=== PATIENT | male | born 1945 | race Caucasian/White ===

== ENCOUNTER 2017-09-12 17:31 | Emergency (ER) | payer MEDICARE, BC ==
[2017-09-12 17:35] VITALS: BP 152/77; PULSE 70; RESP 18; TEMP 98.2
[2017-09-12] MEDS ORDERED: cefTRIAXone 1,000 MG VIAL (IM USE) IM STA (17:58)
--- NOTE | 2017-09-12 17:59 | ED ---
Skin/Abscess/FB HPI - General Chief complaint: Skin/Abscess/Foreign Body Stated complaint: Infection on Leg Time Seen by Provider: 09/12/17 17:38 Source: patient, RN notes reviewed Mode of arrival: ambulatory Limitations: no limitations - History of Present Illness Initial comments: This is a 71-year-old male who presents to the emergency department with chief complaint of right leg infection. Patient states that 3 days ago he was cutting wood with a chainsaw and a log rolled and hit him in the right [place]. He states that he developed a wound that did scab over initially but is now open. He states that it is not very painful but he has noticed some surrounding redness and swelling. He states that he has been applying a drawing salve to the area. Denies any fevers or chills. Denies any other injuries or trauma. Denies chest pain or shortness of breath, abdominal pain, nausea or vomiting. - Related Data Home Medications Medication Instructions Recorded Confirmed Aspirin 81 mg PO HS 09/11/14 08/05/17 Metoprolol Tartrate [Lopressor] 50 mg PO BID 09/11/14 08/05/17 hydrALAZINE HCL [Apresoline] 50 mg PO BID 09/11/14 08/05/17 Glimepiride [Amaryl] 1 mg PO DAILY 12/05/15 08/05/17 Liraglutide [Victoza 3-Kiran] 1.8 mg SQ DAILY 12/05/15 08/05/17 Sodium Bicarbonate Tab 1,950 mg PO TID 12/05/15 08/05/17 Losartan Potassium [Cozaar] 100 mg PO DAILY 04/17/16 08/05/17 Atorvastatin Calcium [Lipitor] 20 mg PO HS 08/05/17 08/05/17 Previous Rx's Medication Instructions Recorded Ketorolac [Toradol] 10 mg PO Q6HR #20 tab 08/05/17 Orphenadrine [Norflex] 100 mg PO Q12H #7 tablet.er 08/05/17 Cephalexin [Keflex] 500 mg PO Q12HR #20 cap 09/12/17 Sulfamethox-Tmp 800-160Mg [Bactrim 1 tab PO Q12HR #20 tab 09/12/17 DS 800-160 mg] Allergies Allergy/AdvReac Type Severity Reaction Status Date / Time allopurinol Allergy Unknown Verified 09/12/17 17:36 choline fenofibrate Allergy Unknown Verified 09/12/17 17:36 [From Trilipix] febuxostat [From Uloric] Allergy Unknown Verified 09/12/17 17:36 Review of Systems ROS Statement: Those systems with pertinent positive or pertinent negative responses have been documented in the HPI. ROS Other: All systems not noted in ROS Statement are negative. Past Medical History Past Medical History: Coronary Artery Disease (CAD), Cancer, Diabetes Mellitus, Eye Disorder, Hyperlipidemia, Hypertension, Myocardial Infarction ([place]), Osteoarthritis (OA), Prostate Disorder, Renal Disease, Skin Disorder Additional Past Medical History / Comment(s): hx kidney stones(takes sodium bicarb), varicose veins bilaterally, prostate cancer, hx gout, hx skin cancer, diabetic retinopathy Last Myocardial Infarction Date:: 2007 History of Any Multi-Drug Resistant Organisms: None Reported Past Surgical History: Coronary Bypass/CABG, Heart Catheterization, Prostate Surgery Additional Past Surgical History / Comment(s): 12/14/15 Robot assisted laparoscopic prostatectomy bilateral pelvic lymhadenectomy. Other surgical hx: cystoscopy/lithotripsy, CABG 3 vessel 2007, repair of laceration on forehead, great toe-left foot surgery for gout, lisa cataracts with lens implants. Past Anesthesia/Blood Transfusion Reactions: No Reported Reaction Past Psychological History: No Psychological Hx Reported Smoking Status: Former smoker Past Alcohol Use History: None Reported Past Drug Use History: None Reported - Past Family History Sister(s) Family Medical History: Cancer Father Family Medical History: Cancer General Exam - General Exam Comments Initial Comments: General: Awake and alert, well-developed; in no apparent distress. HEENT: Head atraumatic, normocephalic. Pupils are equal, round and reactive to light. Extraocular movements intact. Oropharynx moist without erythema or exudate. Neck: Supple. Normal ROM. Cardiovascular: Regular rate and rhythm. No murmurs, rubs or gallops. Chest symmetrical. Respiratory: Lungs clear to auscultation bilaterally. No wheezes, rales or rhonchi. Normal respiratory effort with no use of accessory muscles. Musculoskeletal: Normal range of motion of the right lower extremity. Sensation is intact. Pedal pulses are 2+ equal and palpable bilaterally. Skin: [place], warm and dry. There is an approximately 1 cm in diameter superficial open wound with surrounding erythema. Erythema does spread down to the ankle, however this area is non-tender and no warmth is noted. Neurological: Alert and oriented x3. CN II-XII grossly intact. Speech is fluent and answers are appropriate. No focal neuro deficits. Psychiatric: Normal mood and affect. No overt signs of depression or anxiety noted. Limitations: no limitations Course Vital Signs 09/12/17 17:32 Temperature 98.2 F Pulse Rate 70 Respiratory 18 Rate Blood Pressure 152/77 O2 Sat by Pulse 99 Oximetry Medical Decision Making - Medical Decision Making This is a 71-year-old male who presents to the emergency department with chief complaint of right lower extremity infection. Patient was hit in the right [place] with a lot of 3 days ago. Since that time he has developed a superficial open sore with surrounding erythema and mild swelling. Patient denies any pain. Denies fevers or chills. Vital signs are stable and patient is afebrile. Given a dose of Rocephin while in the emergency department. He will be started on oral antibiotics. Return parameters were discussed including increasing spread of redness or tenderness, and development of fevers. Patient is in no acute distress and will be discharged home at this time. He is in agreement with plan and voices understanding. All questions answered. Disposition Clinical Impression: Cellulitis, Wound of right lower extremity Disposition: HOME SELF-CARE Condition: Good Instructions: Cellulitis (ED), Acute Wound Care (ED), Acute Wounds (ED) Additional Instructions: Please take medications as prescribed. Please follow up with primary care provider within 1-2 days. Please return to the emergency department if you notice any spreading of redness or tenderness, or if you develop fever or chills. Return to emergency department if symptoms should worsen or any concerns arise. Prescriptions: Cephalexin [Keflex] 500 mg PO Q12HR #20 cap Sulfamethox-Tmp 800-160Mg [Bactrim DS 800-160 mg] 1 tab PO Q12HR #20 tab Is patient prescribed a controlled substance at d/c from ED?: No Referrals: Phil Thomas MD [Primary Care Provider] - 1-2 days Time of Disposition: 18:01
== END 2017-09-12 18:54 | disposition home or self-care (01) ==
LOC: EC 17:31
DX: L03.115 Cellulitis of right lower limb (principal); I25.10 Atherosclerotic heart disease of native coronary artery without angina pectoris; E78.5 Hyperlipidemia, unspecified; I10 Essential (primary) hypertension; I25.2 Old myocardial infarction; E11.319 Type 2 diabetes mellitus with unspecified diabetic retinopathy without macular edema; Z87.891 Personal history of nicotine dependence; Z85.828 Personal history of other malignant neoplasm of skin; Z85.46 Personal history of malignant neoplasm of prostate; Z79.82 Long term (current) use of aspirin; Z79.899 Other long term (current) drug therapy; Z88.8 Allergy status to other drugs, medicaments and biological substances; Z95.818 Presence of other cardiac implants and grafts; Z95.1 Presence of aortocoronary bypass graft
CPT/HCPCS: 99282; 96372; J0696

== ENCOUNTER 2018-06-21 02:31 | Emergency (ER) | payer MEDICARE, BC ==
[2018-06-21 02:35] VITALS: RESP 16
--- NOTE | 2018-06-21 02:36 | ED ---
Male Urogenital HPI - General Source: patient, RN notes reviewed Mode of arrival: ambulatory Limitations: no limitations <Rene Almaguer P - Last Filed: 06/21/18 03:46> - General Source: patient Mode of arrival: ambulatory Limitations: no limitations <Trish Fong P - Last Filed: 06/21/18 05:07> - General Chief complaint: Urogenital Stated complaint: Hematuria - History of Present Illness Initial comments: 72-year-old male with significant past medical history including prostate cancer with prostatectomy presents to the emergency department for a chief complaint of hematuria 2 episodes. Patient states he has urinated twice in the past 2 hours and has had a significant amount of blood in the urine. He states he has seen small clots in the urine as well. He admits to mild dysuria when urinating but thinks this is due to the clots. He denies any abdominal pain. He states this has happened before when he had kidney stones. He denies any difficulty urinating.Patient has no other complaints at this time including shortness of breath, chest pain, abdominal pain, nausea or vomiting, headache, or visual changes. (Rene Almaguer) - Related Data Home Medications Medication Instructions Recorded Confirmed Aspirin 81 mg PO HS 09/11/14 08/05/17 Metoprolol Tartrate [Lopressor] 50 mg PO BID 09/11/14 08/05/17 hydrALAZINE HCL [Apresoline] 50 mg PO BID 09/11/14 08/05/17 Glimepiride [Amaryl] 1 mg PO DAILY 12/05/15 08/05/17 Liraglutide [Victoza 3-Kiran] 1.8 mg SQ DAILY 12/05/15 08/05/17 Sodium Bicarbonate Tab 1,950 mg PO TID 12/05/15 08/05/17 Losartan Potassium [Cozaar] 100 mg PO DAILY 04/17/16 08/05/17 Atorvastatin Calcium [Lipitor] 20 mg PO HS 08/05/17 08/05/17 Previous Rx's Medication Instructions Recorded Ketorolac [Toradol] 10 mg PO Q6HR #20 tab 08/05/17 Orphenadrine [Norflex] 100 mg PO Q12H #7 tablet.er 08/05/17 Cephalexin [Keflex] 500 mg PO Q12HR #20 cap 09/12/17 Sulfamethox-Tmp 800-160Mg [Bactrim 1 tab PO Q12HR #20 tab 09/12/17 DS 800-160 mg] Cephalexin [Keflex] 500 mg PO Q6HR 7 Days cap 06/21/18 Allergies Allergy/AdvReac Type Severity Reaction Status Date / Time allopurinol Allergy Unknown Verified 06/21/18 02:34 choline fenofibrate Allergy Unknown Verified 06/21/18 02:34 [From Trilipix] febuxostat [From Uloric] Allergy Unknown Verified 06/21/18 02:34 Review of Systems ROS Other: All systems not noted in ROS Statement are negative. <Rene Almaguer P - Last Filed: 06/21/18 03:46> ROS Other: All systems not noted in ROS Statement are negative. <Trish Fong P - Last Filed: 06/21/18 05:07> ROS Statement: Those systems with pertinent positive or pertinent negative responses have been documented in the HPI. Past Medical History Past Medical History: Coronary Artery Disease (CAD), Cancer, Diabetes Mellitus, Eye Disorder, Hyperlipidemia, Hypertension, Myocardial Infarction ([place]), Osteoarthritis (OA), Prostate Disorder, Renal Disease, Skin Disorder Additional Past Medical History / Comment(s): hx kidney stones(takes sodium bicarb), varicose veins bilaterally, prostate cancer, hx gout, hx skin cancer, diabetic retinopathy Last Myocardial Infarction Date:: 2007 History of Any Multi-Drug Resistant Organisms: None Reported Past Surgical History: Coronary Bypass/CABG, Heart Catheterization, Prostate Surgery Additional Past Surgical History / Comment(s): 12/14/15 Robot assisted laparoscopic prostatectomy bilateral pelvic lymhadenectomy. Other surgical hx: cystoscopy/lithotripsy, CABG 3 vessel 2007, repair of laceration on forehead, great toe-left foot surgery for gout, lisa cataracts with lens implants. Past Anesthesia/Blood Transfusion Reactions: No Reported Reaction Past Psychological History: No Psychological Hx Reported Smoking Status: Former smoker Past Alcohol Use History: None Reported Past Drug Use History: None Reported - Past Family History Sister(s) Family Medical History: Cancer Father Family Medical History: Cancer <Trish Fong P - Last Filed: 06/21/18 05:07> General Exam General appearance: alert, in no apparent distress Head exam: Present: atraumatic, normocephalic, normal inspection Eye exam: Present: normal appearance, PERRL, EOMI. Absent: scleral icterus, conjunctival injection, periorbital swelling ENT exam: Present: normal exam, mucous membranes moist Neck exam: Present: normal inspection, full ROM. Absent: tenderness, meningismus, lymphadenopathy Respiratory exam: Present: normal lung sounds bilaterally. Absent: respiratory distress, wheezes, rales, rhonchi, stridor Cardiovascular Exam: Present: regular rate, normal rhythm, normal heart sounds. Absent: systolic murmur, diastolic murmur, rubs, gallop, clicks GI/Abdominal exam: Present: soft, normal bowel sounds. Absent: distended, tenderness (No abdominal tenderness noted whatsoever), guarding, rebound, rigid Neurological exam: Present: alert, oriented X3, CN II-XII intact Psychiatric exam: Present: normal affect, normal mood <Rene Almaguer P - Last Filed: 06/21/18 03:46> Limitations: no limitations <Trish Fong P - Last Filed: 06/21/18 05:07> Vital Signs 06/21/18 06/21/18 06/21/18 02:32 03:45 04:39 Temperature 98.3 F 98.0 F Pulse Rate 62 67 Respiratory 16 16 Rate Blood Pressure 194/92 180/90 O2 Sat by Pulse 99 96 Oximetry Medical Decision Making - Lab Data Result diagrams: 06/21/18 03:21 06/21/18 03:21 <Rene Almaguer P - Last Filed: 06/21/18 03:46> - Lab Data Result diagrams: 06/21/18 03:21 06/21/18 03:21 <Trish Fong P - Last Filed: 06/21/18 05:07> - Medical Decision Making 72-year-old male presents to the emergency department for a chief complaint of hematuria. Patient does have a history of prostate cancer as well as kidney stones. He had 2 episodes hematuria in the past 2 hours. Denies any difficulty urinating. Does admit to mild dysuria. On exam no abdominal tenderness. This is generally unremarkable. Urinalysis does show greater than 182 red blood cells along with greater than 182 white blood cells with white blood cell clumps. CT abdomen and pelvis is negative. Chest x-ray negative. Patient will be treated with a gram of Rocephin here in the emergency department and of liter of fluids as creatinine is mildly elevated at 1.3. Patient be treated with Keflex outpatient. He will return if he has any worsening symptoms. He will follow up with primary care in 1-2 days. (Rene Almaguer) I was available for consultation in the emergency department. The history and physical exam were done by the midlevel provider. I was consulted for this patient's care. I reviewed the case with the midlevel provider and based on their presentation of the patient, I agree with the assessment, medical decision making and plan of care as documented. (Trish Fong) - Lab Data Lab Results 06/21/18 06/21/18 06/21/18 Range/Units 03:21 03:21 03:21 WBC 5.6 (3.8-10.6) k/uL RBC 4.94 (4.30-5.90) m/uL Hgb 14.7 (13.0-17.5) gm/dL Hct 44.6 (39.0-53.0) % MCV 90.3 (80.0-100.0) fL MCH 29.7 (25.0-35.0) pg MCHC 32.9 (31.0-37.0) g/dL RDW 13.4 (11.5-15.5) % Plt Count 147 L (150-450) k/uL Neutrophils % 69 % Lymphocytes % 19 % Monocytes % 7 % Eosinophils % 4 % Basophils % 0 % Neutrophils # 3.9 (1.3-7.7) k/uL Lymphocytes # 1.1 (1.0-4.8) k/uL Monocytes # 0.4 (0-1.0) k/uL Eosinophils # 0.2 (0-0.7) k/uL Basophils # 0.0 (0-0.2) k/uL Sodium 136 L (137-145) mmol/L Potassium 4.5 (3.5-5.1) mmol/L Chloride 101 (98-107) mmol/L Carbon Dioxide 28 (22-30) mmol/L Anion Gap 7 mmol/L BUN 18 (9-20) mg/dL Creatinine 1.31 H (0.66-1.25) mg/dL Est GFR (CKD-EPI)AfAm 63 (>60 ml/min/1.73 sqM) Est GFR (CKD-EPI)NonAf 54 (>60 ml/min/1.73 sqM) Glucose 177 H (74-99) mg/dL Calcium 8.8 (8.4-10.2) mg/dL Total Bilirubin 1.2 (0.2-1.3) mg/dL AST 20 (17-59) U/L ALT 30 (21-72) U/L Alkaline Phosphatase 101 (38-126) U/L Total Protein 6.0 L (6.3-8.2) g/dL Albumin 3.5 (3.5-5.0) g/dL Urine Color Red Urine Appearance Turbid (Clear) Urine pH 6.0 (5.0-8.0) Ur Specific [place] 1.014 (1.001-1.035) Urine Protein 2+ H (Negative) Urine Glucose (UA) Negative (Negative) Urine Ketones Negative (Negative) Urine Blood Large H (Negative) Urine Nitrite Positive (Negative) Urine Bilirubin Negative (Negative) Urine Urobilinogen <2.0 (<2.0) mg/dL Ur Leukocyte Esterase Large H (Negative) Urine RBC >182 H (0-5) /hpf Urine WBC >182 H (0-5) /hpf Urine WBC Clumps Many H (None) /hpf Urine Bacteria Many H (None) /hpf Hyaline Casts 27 H (0-2) /lpf Urine Mucus Rare H (None) /hpf Disposition Is patient prescribed a controlled substance at d/c from ED?: No Time of Disposition: 03:37 <Rene Almaguer P - Last Filed: 06/21/18 03:46> <Trish Fong P - Last Filed: 06/21/18 05:07> Clinical Impression: Hematuria, Urinary tract infection Disposition: HOME SELF-CARE Condition: Good Instructions (If sedation given, give patient instructions): Urinary Tract Infection in Men (ED), Hematuria (ED) Additional Instructions: Please follow up with primary care in 1-2 days for blood in urine. Please return if you have any worsening symptoms. Prescriptions: Cephalexin [Keflex] 500 mg PO Q6HR 7 Days cap Referrals: Phil Thomas MD [Primary Care Provider] - 1-2 days
--- NOTE | 2018-06-21 03:16 | XR ---
EXAM: XR Chest, 2 Views CLINICAL HISTORY: ITS.REASON XR Reason: Pain TECHNIQUE: Frontal and lateral views of the chest. COMPARISON: 04/17/16 chest x-ray IMPRESSION: Normal heart size. No consolidation or pleural effusion. Median sternotomy wires are intact.
--- NOTE | 2018-06-21 03:24 | CT ---
EXAM: CT Abdomen and Pelvis Without Intravenous Contrast, Renal Stone Protocol CLINICAL HISTORY: ITS.REASON CT Reason: Pain TECHNIQUE: Axial computed tomography images of the abdomen and pelvis without intravenous contrast using renal stone protocol. CTDI is 12 mGy and DLP is 727 mGy-cm. This CT exam was performed using one or more of the following dose reduction techniques: automated exposure control, adjustment of the mA and/or kV according to patient size, and/or use of iterative reconstruction technique. COMPARISON: [facility] 06/09/14 CT abdomen FINDINGS: Lower thorax: Unremarkable. ABDOMEN: Liver: Multiple calcifications likely represent old granulomatous disease. Gallbladder and bile ducts: No calcified stones. No ductal dilation. Pancreas: Unremarkable. No ductal dilation. Spleen: No splenomegaly. Calcified granulomas Adrenals: Unremarkable. No mass. Right kidney and ureter: No obstructing stones. No hydronephrosis. Left kidney and ureter: No obstructing stones. No hydronephrosis. Stomach and bowel: No obstruction. No mucosal thickening. PELVIS: Appendix: No findings to suggest acute appendicitis. Bladder: No stones. Reproductive: Enlarged. ABDOMEN and PELVIS: Intraperitoneal space: No free air. No significant fluid collection. Bones/joints: No acute fracture. No dislocation. Degenerative changes. Evidence of DISH. Soft tissues: Unremarkable. Vasculature: No abdominal aortic aneurysm. Lymph nodes: No enlarged lymph nodes. IMPRESSION: No acute findings. No hydronephrosis or nephrolithiasis.
[2018-06-21 03:33] LABS: Basophils % (A) 0 %; Eosinophils # (A) 0.2 k/uL (0-0.7); Eosinophils % (A) 4 %; HCT 44.6 % (39.0-53.0); HGB 14.7 gm/dL (13.0-17.5); Lymphocytes # (A) 1.1 k/uL (1.0-4.8); Lymphocytes % (A) 19 %; MCH 29.7 pg (25.0-35.0); MCHC 32.9 g/dL (31.0-37.0); MCV 90.3 fL (80.0-100.0); Mean Platelet Volume 7.2; Monocytes # (A) 0.4 k/uL (0-1.0); Monocytes % (A) 7 %; Neutrophils # (A) 3.9 k/uL (1.3-7.7); Neutrophils % (A) 69 %; Platelet Count 147 k/uL (150-450); RBC 4.94 m/uL (4.30-5.90); RDW 13.4 % (11.5-15.5); WBC 5.6 k/uL (3.8-10.6)
[2018-06-21 03:39] LABS: Appearance,Urine Turbid (Clear); Bacteria,Urine Many /hpf; Bilirubin,Urine Negative (Negative); Blood,Urine Large (Negative); Color,Urine Red; Glucose,Urine (UA) Negative (Negative); Hyaline Casts,Urine 27 /lpf (0-2); Ketones,Urine Negative (Negative); Leukocyte Esterase,Urine Large (Negative); Mucus,Urine Rare /hpf; Nitrite,Urine Positive (Negative); Protein,Urine 2+ (Negative); RBC,Urine >182 /hpf (0-5); Specific Gravity,Urine 1.014 (1.001-1.035); Urobilinogen,Urine <2.0 mg/dL (<2.0)
[2018-06-21 03:42] LABS: Albumin 3.5 g/dL (3.5-5.0); Calcium 8.8 mg/dL (8.4-10.2); Potassium 4.5 mmol/L (3.5-5.1); Total Bilirubin 1.2 mg/dL (0.2-1.3)
[2018-06-21] MEDS ORDERED: cefTRIAXone IN SWFI 1,000 MG/10 ML SYRINGE IVP STA (03:46)
[2018-06-21] MEDS ORDERED: SODIUM CHLORIDE 0.9% 1,000 ML IV STA (03:46)
[2018-06-21 03:59] VITALS: BP 180/90; PULSE 67
[2018-06-21 04:46] VITALS: TEMP 98
== END 2018-06-21 04:39 | disposition home or self-care (01) ==
LOC: EC 02:31
DX: N39.0 Urinary tract infection, site not specified (principal); R79.89 Other specified abnormal findings of blood chemistry; I25.10 Atherosclerotic heart disease of native coronary artery without angina pectoris; E11.9 Type 2 diabetes mellitus without complications; E78.5 Hyperlipidemia, unspecified; I10 Essential (primary) hypertension; I25.2 Old myocardial infarction; Z85.46 Personal history of malignant neoplasm of prostate; Z90.79 Acquired absence of other genital organ(s); Z87.442 Personal history of urinary calculi; Z85.828 Personal history of other malignant neoplasm of skin; Z87.891 Personal history of nicotine dependence; Z95.1 Presence of aortocoronary bypass graft; Z95.818 Presence of other cardiac implants and grafts; Z79.82 Long term (current) use of aspirin; Z79.84 Long term (current) use of oral hypoglycemic drugs; Z79.899 Other long term (current) drug therapy; Z88.8 Allergy status to other drugs, medicaments and biological substances
CPT/HCPCS: 99284; 96374; 96361; 36415; 80053; 85025; 81001; 87086; 87077; 87186; 71046; 74150; J0696

== ENCOUNTER 2018-07-22 14:09 | Observation (INO) | payer MEDICARE, BC ==
[2018-07-22] MEDS ORDERED: SODIUM CHLORIDE 0.9% 500 ML 500 ML IV ONE (14:40)
[2018-07-22] MEDS ORDERED: ASPIRIN 325 MG TAB PO STA (14:40)
--- NOTE | 2018-07-22 14:52 | ED ---
General Adult HPI - General Chief complaint: Chest Pain Stated complaint: chest discomfort Time Seen by Provider: 07/22/18 14:22 Source: patient, RN notes reviewed, old records reviewed Mode of arrival: wheelchair Limitations: no limitations - History of Present Illness Initial comments: 72-year-old male presents for evaluation of chest pain. Patient states that for the past 3 days he's had intermittent left-sided chest pain. He has had a mild cough. No fever or chills. He has history of CAD status post open heart surgery in 2009. This denies associated diaphoresis or nausea vomiting. Patient's states he was quite pale just prior to arrival. He did feel lightheaded and reported some blurry vision. He states he's had vertigo in the past although this was dissimilar sensation, felt that he might pass out. No focal numbness or weakness. - Related Data Home Medications Medication Instructions Recorded Confirmed Aspirin 81 mg PO HS 09/11/14 07/22/18 Metoprolol Tartrate [Lopressor] 50 mg PO BID 09/11/14 07/22/18 hydrALAZINE HCL [Apresoline] 50 mg PO BID 09/11/14 07/22/18 Glimepiride [Amaryl] 1 mg PO AC-BID 12/05/15 07/22/18 Liraglutide [Victoza 3-Kiran] 1.8 mg SQ DAILY 12/05/15 07/22/18 Sodium Bicarbonate Tab 1,950 mg PO TID 12/05/15 07/22/18 Losartan Potassium [Cozaar] 100 mg PO DAILY 04/17/16 07/22/18 Atorvastatin Calcium [Lipitor] 10 mg PO HS 08/05/17 07/22/18 Allergies Allergy/AdvReac Type Severity Reaction Status Date / Time allopurinol Allergy Unknown Verified 07/22/18 14:51 choline fenofibrate Allergy Unknown Verified 07/22/18 14:51 [From Trilipix] febuxostat [From Uloric] Allergy Unknown Verified 07/22/18 14:51 Review of Systems ROS Statement: Those systems with pertinent positive or pertinent negative responses have been documented in the HPI. ROS Other: All systems not noted in ROS Statement are negative. Past Medical History Past Medical History: Coronary Artery Disease (CAD), Cancer, Diabetes Mellitus, Eye Disorder, Hyperlipidemia, Hypertension, Myocardial Infarction ([place]), Osteoarthritis (OA), Prostate Disorder, Renal Disease, Skin Disorder Additional Past Medical History / Comment(s): hx kidney stones(takes sodium bicarb), varicose veins bilaterally, prostate cancer, hx gout, hx skin cancer, diabetic retinopathy Last Myocardial Infarction Date:: 2007 History of Any Multi-Drug Resistant Organisms: None Reported Past Surgical History: Coronary Bypass/CABG, Heart Catheterization, Prostate Surgery Additional Past Surgical History / Comment(s): 12/14/15 Robot assisted laparoscopic prostatectomy bilateral pelvic lymhadenectomy. Other surgical hx: cystoscopy/lithotripsy, CABG 3 vessel 2007, repair of laceration on forehead, great toe-left foot surgery for gout, lisa cataracts with lens implants. Past Anesthesia/Blood Transfusion Reactions: No Reported Reaction Past Psychological History: No Psychological Hx Reported Smoking Status: Former smoker Past Alcohol Use History: None Reported Past Drug Use History: None Reported - Past Family History Sister(s) Family Medical History: Cancer Father Family Medical History: Cancer General Exam Limitations: no limitations General appearance: alert, in no apparent distress Head exam: Present: atraumatic, normocephalic Eye exam: Present: normal appearance, PERRL, EOMI ENT exam: Present: mucous membranes dry Neck exam: Present: normal inspection. Absent: tenderness, meningismus Respiratory exam: Present: normal lung sounds bilaterally. Absent: respiratory distress, wheezes Cardiovascular Exam: Present: regular rate, normal rhythm GI/Abdominal exam: Present: soft. Absent: distended, tenderness, guarding Extremities exam: Present: normal inspection, normal capillary refill. Absent: pedal edema Neurological exam: Present: alert, oriented X3, CN II-XII intact. Absent: motor sensory deficit Psychiatric exam: Present: normal affect, normal mood Skin exam: Present: warm, dry, intact. Absent: cyanosis, diaphoretic Course Vital Signs 07/22/18 14:11 Temperature 97.7 F Pulse Rate 71 Respiratory 18 Rate Blood Pressure 138/74 O2 Sat by Pulse 98 Oximetry EKG Findings - EKG Comments: EKG Findings:: EKG: Normal sinus rhythm, left axis deviation, LVH, rate of 69, AK interval 168, QRS duration 96, QTC 424, no ST segment elevation. Similar compared to previous EKG, March 2016. Medical Decision Making - Medical Decision Making 72-year-old male presenting with chest discomfort for the past 3 days, history of CAD, and lightheadedness with near-syncope. Workup in the emergency department shows chest x-ray negative for any acute cardiopulmonary disease, there is cardiomegaly, normal CBC, creatinine 1.36 which is baseline for this patient, initial troponin is negative. Patient will be kept in observation for serial cardiac enzymes, telemetry, cardiology consultation. Echo will be obtained. - Lab Data Result diagrams: 07/22/18 14:40 07/22/18 14:40 Lab Results 07/22/18 07/22/18 07/22/18 Range/Units 14:40 14:40 14:40 WBC 6.4 (3.8-10.6) k/uL RBC 5.18 (4.30-5.90) m/uL Hgb 15.4 (13.0-17.5) gm/dL Hct 45.7 (39.0-53.0) % MCV 88.2 (80.0-100.0) fL MCH 29.7 (25.0-35.0) pg MCHC 33.7 (31.0-37.0) g/dL RDW 14.5 (11.5-15.5) % Plt Count 218 (150-450) k/uL Neutrophils % 69 % Lymphocytes % 19 % Monocytes % 7 % Eosinophils % 3 % Basophils % 0 % Neutrophils # 4.5 (1.3-7.7) k/uL Lymphocytes # 1.2 (1.0-4.8) k/uL Monocytes # 0.4 (0-1.0) k/uL Eosinophils # 0.2 (0-0.7) k/uL Basophils # 0.0 (0-0.2) k/uL PT (9.0-12.0) sec INR (<1.2) APTT (22.0-30.0) sec Sodium 136 L (137-145) mmol/L Potassium 4.5 (3.5-5.1) mmol/L Chloride 102 (98-107) mmol/L Carbon Dioxide 26 (22-30) mmol/L Anion Gap 8 mmol/L BUN 21 H (9-20) mg/dL Creatinine 1.36 H (0.66-1.25) mg/dL Est GFR (CKD-EPI)AfAm 60 (>60 ml/min/1.73 sqM) Est GFR (CKD-EPI)NonAf 52 (>60 ml/min/1.73 sqM) Glucose 243 H (74-99) mg/dL Calcium 9.6 (8.4-10.2) mg/dL Magnesium 1.7 (1.6-2.3) mg/dL Total Bilirubin 1.7 H (0.2-1.3) mg/dL AST 25 (17-59) U/L ALT 31 (21-72) U/L Alkaline Phosphatase 90 (38-126) U/L Troponin I (0.000-0.034) ng/mL NT-Pro-B Natriuret Pep 289 pg/mL Total Protein 6.8 (6.3-8.2) g/dL Albumin 3.9 (3.5-5.0) g/dL Lipase 250 (23-300) U/L 07/22/18 07/22/18 Range/Units 14:40 14:40 WBC (3.8-10.6) k/uL RBC (4.30-5.90) m/uL Hgb (13.0-17.5) gm/dL Hct (39.0-53.0) % MCV (80.0-100.0) fL MCH (25.0-35.0) pg MCHC (31.0-37.0) g/dL RDW (11.5-15.5) % Plt Count (150-450) k/uL Neutrophils % % Lymphocytes % % Monocytes % % Eosinophils % % Basophils % % Neutrophils # (1.3-7.7) k/uL Lymphocytes # (1.0-4.8) k/uL Monocytes # (0-1.0) k/uL Eosinophils # (0-0.7) k/uL Basophils # (0-0.2) k/uL PT 10.3 (9.0-12.0) sec INR 1.0 (<1.2) APTT 27.9 (22.0-30.0) sec Sodium (137-145) mmol/L Potassium (3.5-5.1) mmol/L Chloride (98-107) mmol/L Carbon Dioxide (22-30) mmol/L Anion Gap mmol/L BUN (9-20) mg/dL Creatinine (0.66-1.25) mg/dL Est GFR (CKD-EPI)AfAm (>60 ml/min/1.73 sqM) Est GFR (CKD-EPI)NonAf (>60 ml/min/1.73 sqM) Glucose (74-99) mg/dL Calcium (8.4-10.2) mg/dL Magnesium (1.6-2.3) mg/dL Total Bilirubin (0.2-1.3) mg/dL AST (17-59) U/L ALT (21-72) U/L Alkaline Phosphatase (38-126) U/L Troponin I <0.012 (0.000-0.034) ng/mL NT-Pro-B Natriuret Pep pg/mL Total Protein (6.3-8.2) g/dL Albumin (3.5-5.0) g/dL Lipase (23-300) U/L Disposition Clinical Impression: Chest pain, Near syncope Disposition: ADMITTED IP TO THIS [facility] Condition: Stable Is patient prescribed a controlled substance at d/c from ED?: No Referrals: Phil Thomas MD [Primary Care Provider] - 1-2 days Decision to Admit Reason: Admit from EC Decision Date: 07/22/18 Decision Time: 16:26
[2018-07-22 14:57] LABS: Basophils % (A) 0 %; Eosinophils # (A) 0.2 k/uL (0-0.7); Eosinophils % (A) 3 %; HCT 45.7 % (39.0-53.0); HGB 15.4 gm/dL (13.0-17.5); Lymphocytes # (A) 1.2 k/uL (1.0-4.8); Lymphocytes % (A) 19 %; MCH 29.7 pg (25.0-35.0); MCHC 33.7 g/dL (31.0-37.0); MCV 88.2 fL (80.0-100.0); Mean Platelet Volume 8.2; Monocytes # (A) 0.4 k/uL (0-1.0); Monocytes % (A) 7 %; Neutrophils # (A) 4.5 k/uL (1.3-7.7); Neutrophils % (A) 69 %; Platelet Count 218 k/uL (150-450); RBC 5.18 m/uL (4.30-5.90); RDW 14.5 % (11.5-15.5); WBC 6.4 k/uL (3.8-10.6)
--- NOTE | 2018-07-22 15:03 | XR ---
EXAMINATION TYPE: XR chest 2V DATE OF EXAM: 07/22/2018 COMPARISON: Chest x-ray one month ago. HISTORY: Chest pressure and pain for 3 days. TECHNIQUE: Frontal and lateral views of the chest are obtained. FINDINGS: Overlying EKG leads are seen. There is elevated left hemidiaphragm noted. Overlying sternal wires and mediastinal clips are redemonstrated. There is no focal air space opacity, pleural effusi on, or pneumothorax seen. The cardiac silhouette size is within mildly enlarged . Multilevel spurrin g in the thoracic spine is redemonstrated. IMPRESSION: Mild cardiomegaly without acute pulmonary process.
[2018-07-22 15:06] LABS: Partial Thromboplastin Time 27.9 sec (22.0-30.0); Prothrombin Time 10.3 sec (9.0-12.0)
[2018-07-22 15:11] LABS: Albumin 3.9 g/dL (3.5-5.0); Calcium 9.6 mg/dL (8.4-10.2); Magnesium 1.7 mg/dL (1.6-2.3); Potassium 4.5 mmol/L (3.5-5.1); Total Bilirubin 1.7 mg/dL (0.2-1.3); Total Protein 6.8 g/dL (6.3-8.2)
[2018-07-22] MEDS ORDERED: MORPHINE SULFATE 4 MG/ML SYRINGE IV PRN (16:21)
[2018-07-22] MEDS ORDERED: ONDANSETRON 4 MG/2 ML VIAL IVP PRN (16:21)
[2018-07-22] MEDS ORDERED: MECLIZINE 25 MG TAB PO PRN (16:21)
[2018-07-22] MEDS ORDERED: ACETAMINOPHEN TAB 325 MG TAB PO PRN (16:21)
[2018-07-22] MEDS ORDERED: NALOXONE 0.4 MG/ML 1 ML VIAL IV PRN (16:21)
[2018-07-22] MEDS ORDERED: NITROGLYCERIN SL TABS 0.4 MG TAB SUBLINGUAL PRN (16:23)
[2018-07-22] MEDS: SODIUM CHLORIDE 0.9% 1,000 ML IV SCH (17:14)
[2018-07-22] MEDS ORDERED: GLIMEPIRIDE 1 MG TAB PO SCH (17:30)
[2018-07-22 20:10] VITALS: RESP 18
[2018-07-22] MEDS: METOPROLOL TARTRATE 50 MG TAB PO SCH (20:22)
[2018-07-22] MEDS: hydrALAZINE HCL 50 MG TAB PO SCH (20:22)
[2018-07-22 20:27] LABS: Glucose,Whole Blood 118 mg/dL (75-99)
[2018-07-22] MEDS: INSULIN ASPART (NovoLOG) 100 UNIT/ML VIAL SQ SCH (20:30)
[2018-07-22] MEDS: SODIUM BICARBONATE TAB 650 MG TAB PO SCH (20:30)
[2018-07-22] MEDS ORDERED: ATORVASTATIN 10 MG TAB PO SCH (21:00)
[2018-07-22] MEDS ORDERED: ASPIRIN 81 MG PO SCH (21:00)
[2018-07-23] MEDS: SODIUM CHLORIDE 0.9% 1,000 ML IV SCH (06:26)
[2018-07-23 06:44] LABS: Glucose,Whole Blood 138 mg/dL (75-99)
[2018-07-23] MEDS: Liraglutide [Victoza 3-Pak] 1.8 MG SQ SCH ×2 (08:47→10:48)
[2018-07-23] MEDS ORDERED: LOSARTAN 50 MG TAB PO SCH (09:00)
--- NOTE | 2018-07-23 09:15 | P.CRDCN ---
History of Present Illness Consult date: 07/23/18 History of present illness: This is a 72-year-old gentleman with history of coronary artery disease with previous bypass surgery in 2009. Patient has been followed by Dr. Dunn regularly. He also has hypertension and diabetes and hypercholesterolemia. Apparently for the last week has been is sneezing. He had a previous injury with whiplash and his lack. Whenever he was sneezing, he was having pain in the neck that radiated to the chest. He claims that he had some discomfort yesterday in the left upper chest which was very mild. Apparently lasted about an hour or so and then subsided spontaneously. According to the emergency room. Patient also had some lightheadedness and blurry vision. He doesn't recall having any issues. Since admission patient has been stable. His EKGs did not reveal any significant changes. His cardiac enzymes are so far negative. His creatinine is 1.36 which is chronic. His proBNP is within normal limits. Patient is feeling very good and he wants to go home. He had a stress test last year which apparently was normal. Patient prefers to go home and be followed with the Dr. Dunn in one week. Review of Systems As per the chart Past Medical History Past Medical History: Coronary Artery Disease (CAD), Cancer, Diabetes Mellitus, Eye Disorder, Hyperlipidemia, Hypertension, Myocardial Infarction ([place]), Osteoarthritis (OA), Prostate Disorder, Renal Disease, Skin Disorder Additional Past Medical History / Comment(s): hx kidney stones(takes sodium bicarb), varicose veins bilaterally, prostate cancer, hx gout, hx skin cancer, diabetic retinopathy, vertigo Last Myocardial Infarction Date:: 2007 History of Any Multi-Drug Resistant Organisms: None Reported Past Surgical History: Coronary Bypass/CABG, Heart Catheterization, Prostate Surgery Additional Past Surgical History / Comment(s): 12/14/15 Robot assisted laparoscopic prostatectomy bilateral pelvic lymhadenectomy. Other surgical hx: cystoscopy/lithotripsy, CABG 3 vessel 2007, repair of laceration on forehead, great toe-left foot surgery for gout, lisa cataracts with lens implants. Past Anesthesia/Blood Transfusion Reactions: No Reported Reaction Past Psychological History: No Psychological Hx Reported Additional Psychological History / Comment(s): Pt resides with his spouse. He is independent. Smoking Status: Former smoker Past Alcohol Use History: None Reported Past Drug Use History: None Reported - Past Family History Sister(s) Family Medical History: Cancer Father Family Medical History: Cancer Medications and Allergies Home Medications Medication Instructions Recorded Confirmed Type Aspirin 81 mg PO HS 09/11/14 07/22/18 History Metoprolol Tartrate [Lopressor] 50 mg PO BID 09/11/14 07/22/18 History hydrALAZINE HCL [Apresoline] 50 mg PO BID 09/11/14 07/22/18 History Glimepiride [Amaryl] 1 mg PO AC-BID 12/05/15 07/22/18 History Liraglutide [Victoza 3-Kiran] 1.8 mg SQ DAILY 12/05/15 07/22/18 History Sodium Bicarbonate Tab 1,950 mg PO TID 12/05/15 07/22/18 History Losartan Potassium [Cozaar] 100 mg PO DAILY 04/17/16 07/22/18 History Atorvastatin Calcium [Lipitor] 10 mg PO HS 08/05/17 07/22/18 History Allergies Allergy/AdvReac Type Severity Reaction Status Date / Time allopurinol Allergy Unknown Verified 07/22/18 20:12 choline fenofibrate Allergy Unknown Verified 07/22/18 20:12 [From Trilipix] febuxostat [From Uloric] Allergy Unknown Verified 07/22/18 20:12 Physical Exam Vitals: Vital Signs Temp Pulse Pulse Resp BP BP Pulse Ox 07/23/18 07:30 97.6 F 62 18 164/80 95 07/23/18 03:19 18 07/23/18 02:56 97.7 F 66 18 134/65 98 07/22/18 23:38 98.4 F 66 18 129/61 96 07/22/18 20:00 97.7 F 61 18 169/90 96 07/22/18 19:00 66 13 166/97 97 07/22/18 18:00 66 15 178/93 96 07/22/18 16:00 61 16 165/91 97 07/22/18 14:11 97.7 F 71 18 138/74 98 Intake and Output 07/22/18 07/23/18 07/23/18 22:59 06:59 14:59 Intake Total 525 Balance 525 Intake: IV 525 Sodium Chloride 0.9% 1, 525 000 ml @ 75 mls/hr IV . [id number] [facility] Rx#:[id number] Other: Voiding Method Toilet Toilet Toilet # Voids 2 GENERAL EXAM: Patient is alert and oriented and doesn't appear to be in any acute distress HEENT: Normocephalic. Normal reaction of pupils, equal size, normal range of extraocular motion. No erythema or exudates in the throat. NECK: No masses, no nuchal rigidity. CHEST: No chest wall deformity. LUNGS: Equal air entry with no crackles or wheeze. HEART: S1 and S2 normal with no audible mumurs or gallops. Regular rhythm, femorals equal on both sides.. ABDOMEN: No hepatosplenomegaly, normal bowel sounds, no guarding or rigidity. SKIN: No rashes CENTRAL NERVOUS SYSTEM: No focal deficits. EXTREMITIES: No cyanosis, clubbing or edema. Results 07/22/18 14:40 07/22/18 14:40 Cardiac Enzymes 07/22/18 07/22/18 07/22/18 Range/Units 14:40 14:40 20:43 AST 25 (17-59) U/L Troponin I <0.012 <0.012 (0.000-0.034) ng/mL 07/23/18 Range/Units 03:21 AST (17-59) U/L Troponin I <0.012 (0.000-0.034) ng/mL Coagulation 07/22/18 Range/Units 14:40 PT 10.3 (9.0-12.0) sec APTT 27.9 (22.0-30.0) sec CBC 07/22/18 Range/Units 14:40 WBC 6.4 (3.8-10.6) k/uL RBC 5.18 (4.30-5.90) m/uL Hgb 15.4 (13.0-17.5) gm/dL Hct 45.7 (39.0-53.0) % Plt Count 218 (150-450) k/uL Comprehensive Metabolic Panel 07/22/18 Range/Units 14:40 Sodium 136 L (137-145) mmol/L Potassium 4.5 (3.5-5.1) mmol/L Chloride 102 (98-107) mmol/L Carbon Dioxide 26 (22-30) mmol/L BUN 21 H (9-20) mg/dL Creatinine 1.36 H (0.66-1.25) mg/dL Glucose 243 H (74-99) mg/dL Calcium 9.6 (8.4-10.2) mg/dL AST 25 (17-59) U/L ALT 31 (21-72) U/L Alkaline Phosphatase 90 (38-126) U/L Total Protein 6.8 (6.3-8.2) g/dL Albumin 3.9 (3.5-5.0) g/dL Current Medications Generic Name Dose Route Start Last Admin Trade Name Freq PRN Reason Stop Dose Admin Acetaminophen 650 mg 07/22/18 16:21 Tylenol Tab PO Q6HR PRN Mild Pain or Fever > 100.5 Aspirin 81 mg 07/22/18 21:00 07/22/18 20:22 Aspirin PO 81 mg HS LORI Administration Atorvastatin Calcium 10 mg 07/22/18 21:00 07/22/18 20:22 Lipitor PO 10 mg HS LORI Administration Hydralazine HCl 50 mg 07/22/18 21:00 07/22/18 20:22 Apresoline PO 50 mg BID LORI Administration Sodium Chloride 1,000 mls @ 75 mls/hr 07/22/18 16:30 07/23/18 06:26 Saline 0.9% IV Not Given .[id number] [facility] Insulin Aspart 0 unit 07/22/18 21:00 07/22/18 20:30 Novolog SQ Not Given ACHS [facility] Protocol Losartan Potassium 100 mg 07/23/18 09:00 Cozaar PO DAILY [facility] Meclizine HCl 25 mg 07/22/18 16:21 Antivert PO TID PRN Vertigo Metoprolol Tartrate 50 mg 07/22/18 21:00 07/22/18 20:22 Lopressor PO 50 mg BID LORI Administration Morphine Sulfate 4 mg 07/22/18 16:21 Morphine Sulfate (Inj) IV Q4HR PRN Severe Pain Naloxone HCl 0.2 mg 07/22/18 16:21 Narcan IV Q2M PRN Opioid Reversal Nitroglycerin 0.4 mg 07/22/18 16:23 Nitrostat SUBLINGUAL Q5M PRN Chest Pain Non-Formulary Medication 1.8 mg 07/23/18 09:00 07/23/18 08:47 Liraglutide [Victoza 3-Kiran] SQ Not Given DAILY [facility] Ondansetron HCl 4 mg 07/22/18 16:21 Zofran IVP Q8HR PRN Nausea And Vomiting Sodium Bicarbonate 1,950 mg 07/22/18 22:00 07/22/18 20:30 Sodium Bicarbonate Tab PO 1,950 mg TID LORI Administration Intake and Output 07/22/18 07/23/18 07/23/18 22:59 06:59 14:59 Intake Total 525 Balance 525 Intake: IV 525 Sodium Chloride 0.9% 1, 525 000 ml @ 75 mls/hr IV . [id number] [facility] Rx#:[id number] Other: Voiding Method Toilet Toilet Toilet # Voids 2 07/22/18 14:40 07/22/18 14:40 EKG Interpretations (text) Showed a sinus rhythm with a left axis deviation. Moderate voltage criteria for LVH. Old inferior wall MT Assessment and Plan (1) CAD (coronary artery disease) Current Visit: Yes Status: Acute Code(s): I25.10 - ATHSCL HEART DISEASE OF [place] CORONARY ARTERY W/O ANG PCTRS SNOMED Code(s): 87198157 (2) Chest pain Current Visit: Yes Status: Acute Code(s): R07.9 - CHEST PAIN, UNSPECIFIED SNOMED Code(s): 62803569 (3) Near syncope Current Visit: Yes Status: Acute Code(s): R55 - SYNCOPE AND COLLAPSE SNOMED Code(s): 808338208 Plan: Patient's cardiac enzymes are negative. EKG did not reveal any acute changes. Patient chest discomfort is resolved. Patient apparently had a stress test last year which was negative for ischemia. We'll try to get copies of them. Patient had an echo Cardec gram this morning. If the echo looks normal without any new changes, patient could be discharged home. Follow-up with the Dr. Dunn. May be considered for outpatient monitoring. If his symptoms of dizzines recur.
[2018-07-23 09:54] VITALS: BMI 30.5
[2018-07-23] MEDS: INSULIN ASPART (NovoLOG) 100 UNIT/ML VIAL SQ SCH ×2 (10:17→12:06)
[2018-07-23] MEDS: SODIUM BICARBONATE TAB 650 MG TAB PO SCH (10:34)
[2018-07-23] MEDS: METOPROLOL TARTRATE 50 MG TAB PO SCH (10:34)
[2018-07-23] MEDS: hydrALAZINE HCL 50 MG TAB PO SCH (10:35)
--- NOTE | 2018-07-23 10:36 | ECHOF ---
Referral Reason:CP MEASUREMENTS -------- HEIGHT: 152.4 cm WEIGHT: 96.6 kg BP: IVSd: 1.5 cm (0.6 - 1.1) LVIDd: 3.9 cm (3.9 - 5.3) LVPWd: 1.4 cm (0.6 - 1.1) IVSs: 1.8 cm LVIDs: 3.1 cm LVPWs: 1.4 cm LA Diam: 3.8 cm (2.7 - 3.8) LAESV Index (A-L): 25.01 ml/m Ao Diam: 3.4 cm (2.0 - 3.7) AV Cusp: 1.9 cm (1.5 - 2.6) LA Diam: 4.2 cm (2.7 - 3.8) MV EXCURSION: 23.601 mm (> 18.000) MV EF SLOPE: 111 mm/s (70 - 150) EPSS: 0.1 cm MV E Adama: 0.74 m/s MV DecT: 192 ms MV A Adama: 0.70 m/s MV E/A Ratio: 1.07 RAP: 5.00 mmHg RVSP: 24.64 mmHg FINDINGS -------- Sinus rhythm. This was a technically adequate study. The left ventricular size is normal. There is moderate concentric left ventricular hypertrophy. O verall left ventricular systolic function is low-normal with, an EF between 50 - 55 %. Basal inferi or LV wall motion is hypokinetic. The right ventricle is normal in size. The left atrial size is normal. The right atrial size is normal. There is mild aortic valve sclerosis. There is no evidence of aortic regurgitation. Mild mitral annular calcification present. Mild mitral regurgitation is present. Mild tricuspid regurgitation present. There is no evidence of pulmonary hypertension. The right v entricular systolic pressure, as measured by Doppler, is 24.64mmHg. There is no pulmonic regurgitation present. The aortic root size is normal. There is no pericardial effusion. CONCLUSIONS -------- 1. The left ventricular size is normal. 2. There is moderate concentric left ventricular hypertrophy. 3. Basal inferior LV wall motion is hypokinetic. 4. The right ventricle is normal in size. 5. The left atrial size is normal. 6. The right atrial size is normal. 7. There is mild aortic valve sclerosis. 8. Mild mitral annular calcification present. 9. Mild mitral regurgitation is present. 10. Mild tricuspid regurgitation present. 11. There is no evidence of pulmonary hypertension. 12. The right ventricular systolic pressure, as measured by Doppler, is 24.64mmHg. 13. There is no pulmonic regurgitation present. 14. The aortic root size is normal. 15. There is no pericardial effusion. 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
[2018-07-23 11:56] VITALS: BP 155/79; PULSE 64; TEMP 97.9
--- NOTE | 2018-07-23 12:05 | P.HPIM ---
History of Present Illness H&P Date: 07/22/18 Chief Complaint: Dizzy spell and chest discomfort This is a 72-year-old male one of Dr. Thomas with a previous medical history significant for hypertension and hypertensive cardio vascular disease with left ventricular hypertrophy, diabetes mellitus type 2 with diabetic polyneuropathy and diabetic retinopathy, history of prostate cancer status post robotic-assisted laparoscopic prostatectomy that was done in 2016, coronary artery disease status post coronary artery bypass graft for 3 vessels back in 2009 patient follows up with Dr. Dunn a regular basis, he was seen recently about a month ago and he was doing fine and he had a stress test according to him about a year ago that was negative for stress-induced ischemia, patient was in his usual state of health about today when he was emptying stuff from his truck and suddenly developed to have a a dizzy spell with lightheadedness and at the same time felt a funny feeling in the left chest patient's ended up bringing him to the emergency room for evaluation he was found to have a mild prerenal azotemia, he was placed on IV fluid resuscitation was given meclizine in the ER but because of the presentation he was admitted to the hospital for evaluation by cardiology, patient was placed on the monitor over the next 23 hours and was negative no evidence of any acute arrhythmias, patient had an echo cardiogram that showed ejection fraction 55% with an old hypokinesia in the inferior leads and mitral regurgitation and tricuspid regurgitation, he was seen in consultation by cardiology as well for further evaluation and treatment. Review of Systems Constitutional: Denies anorexia, Denies chronic headaches, Denies lethargy, Denies malaise, Denies weight gain, Denies weight loss Eyes: bilateral blurred vision, denies bulging eye, denies decreased vision, denies diplopia Ears: deny: decreased hearing Ears, nose, mouth and throat: Denies dysphagia, Denies neck lump, Denies sore th roat Cardiovascular: Reports chest pain, Reports lightheadedness, Denies decreased exercise tolerance, Denies dyspnea on exertion, Denies orthopnea, Denies rapid heart beat, Denies shortness of breath, Denies syncope Respiratory: Denies congestion, Denies cough, Denies cough with sputum, Denies home oxygen, Denies sleep apnea, Denies snoring, Denies wheezing Gastrointestinal: Denies abdominal pain, Denies bloating, Denies BRBPR, Denies excessive gas, Denies heartburn, Denies melena, Denies nausea, Denies vomiting Genitourinary: Reports nocturia, Denies dysuria Musculoskeletal: Denies myalgias Musculoskeletal: absent: ankle pain, ankle stiffness, ankle swelling, elbow pain, elbow stiffness, elbow swelling, foot pain, foot stiffness, foot swelling, hand pain, hand stiffness, hand swelling, hip pain, hip stiffness, hip swelling, knee pain, knee stiffness, knee swelling, shoulder pain, shoulder stiffness, shoulder swelling, wrist pain, wrist stiffness, wrist swelling Integumentary: Denies pruritus, Denies rash Neurological: Denies numbness, Denies weakness Psychiatric: Denies anxiety, Denies depression Endocrine: Denies fatigue, Denies weight change Past Medical History Past Medical History: Coronary Artery Disease (CAD), Cancer, Diabetes Mellitus, Eye Disorder, Hyperlipidemia, Hypertension, Myocardial Infarction (NC), Osteoarthritis (OA), Prostate Disorder, Renal Disease, Skin Disorder Additional Past Medical History / Comment(s): hx kidney stones(takes sodium bic arb), varicose veins bilaterally, prostate cancer, hx gout, hx skin cancer, diabetic retinopathy Last Myocardial Infarction Date:: 2007 History of Any Multi-Drug Resistant Organisms: None Reported Past Surgical History: Coronary Bypass/CABG, Heart Catheterization, Prostate Surgery Additional Past Surgical History / Comment(s): 12/14/15 Robot assisted laparoscopic prostatectomy bilateral pelvic lymhadenectomy. 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 Past Anesthesia/Blood Transfusion Reactions: No Reported Reaction Past Psychological History: No Psychological Hx Reported Smoking Status: Former smoker (Patient used to smoke about half a pack per week he smoked for about 40 years quit about 15 years ago, he denies any alcohol ingestion, no drug use or abuse.) Past Alcohol Use History: None Reported Past Drug Use History: None Reported - Past Family History Sister(s) Family Medical History: Diabetes Mellitus (Patient has one sister with diabetes ) Father Family Medical History: Coronary Artery Disease (CAD) (Father at age of 87 after coronary artery bypass graft and also had acute renal failure.) Mother Family Medical History: Coronary Artery Disease (CAD) (Mother at age 75 from diabetes and she had complications due to CABG.), Diabetes Mellitus Brother(s) Family Medical History: AICD/Pacemaker (Patient has 2 brothers one of them with permanent pacemaker placement.) Son(s) Family Medical History: No Reported History (Patient has 2 sons no major medical problems.) Daughter(s) Family Medical History: No Reported History (Patient has one daughter no major medical problems.) Medications and Allergies Home Medications Medication Instructions Recorded Confirmed Type Aspirin 81 mg PO HS 09/11/14 07/22/18 History Metoprolol Tartrate [Lopressor] 50 mg PO BID 09/11/14 07/22/18 History hydrALAZINE HCL [Apresoline] 50 mg PO BID 09/11/14 07/22/18 History Glimepiride [Amaryl] 1 mg PO AC-BID 12/05/15 07/22/18 History Liraglutide [Victoza 3-Kiran] 1.8 mg SQ DAILY 12/05/15 07/22/18 History Sodium Bicarbonate Tab 1,950 mg PO TID 12/05/15 07/22/18 History Losartan Potassium [Cozaar] 100 mg PO DAILY 04/17/16 07/22/18 History Atorvastatin Calcium [Lipitor] 10 mg PO HS 08/05/17 07/22/18 History Allergies Allergy/AdvReac Type Severity Reaction Status Date / Time allopurinol Allergy Unknown Verified 07/22/18 20:12 choline fenofibrate Allergy Unknown Verified 07/22/18 20:12 [From Trilipix] febuxostat [From Uloric] Allergy Unknown Verified 07/22/18 20:12 Physical Exam Vitals: Vital Signs Temp Pulse Resp BP Pulse Ox 07/22/18 19:00 66 13 166/97 97 07/22/18 18:00 66 15 178/93 96 07/22/18 16:00 61 16 165/91 97 07/22/18 14:11 97.7 F 71 18 138/74 98 Intake and Output 07/22/18 07/22/18 07/22/18 06:59 14:59 22:59 Other: Weight 96.615 kg - Constitutional General appearance: average body habitus, no acute distress - EENT Eyes: anicteric sclerae, EOMI, PERRLA, no ptosis, no scleral icterus, normal appearance ENT: hearing grossly normal, NA/AT, normal oropharynx, no thrush Ears: bilateral: normal - Neck Neck: no lymphadenopathy, normal ROM, no rigidity, no stridor, no thyromegaly Carotids: bilateral: upstroke normal Thyroid: bilateral: normal size - Respiratory Respiratory: bilateral: diminished, negative: dullness, rales, rhonchi, wheezi ng, prolonged expiration - Cardiovascular Rhythm: regular Heart sounds: normal: S1, S2 Abnormal Heart Sounds: systolic murmur, no S3 Gallop - Gastrointestinal General gastrointestinal: normal bowel sounds, soft, no splenomegaly, no tenderness, umbilical hernia, no ventral hernia - Integumentary Integumentary: normal, normal turgor - Neurologic Neurologic: CNII-XII intact - Musculoskeletal Musculoskeletal: gait normal, strength equal bilaterally - Psychiatric Psychiatric: A&O x's 3, appropriate affect, intact judgment & insight Results CBC & Chem 7: 07/22/18 14:40 07/22/18 14:40 Labs: Abnormal Lab Results - Last 24 Hours (Table) 07/22/18 Range/Units 14:40 Sodium 136 L (137-145) mmol/L BUN 21 H (9-20) mg/dL Creatinine 1.36 H (0.66-1.25) mg/dL Glucose 243 H (74-99) mg/dL Total Bilirubin 1.7 H (0.2-1.3) mg/dL Thrombosis Risk Factor Assmnt - DVT/VTE Prophylaxis DVT/VTE Prophylaxis: Mechanical Prophylaxis ordered Assessment and Plan Assessment: Assessment and plan: 1. Dizziness and lightheadedness thought to be due to prerenal azotemia. Continue IV fluid resuscitation the form of normal saline 75 mL an hour monitor the patient very closely, check orthostatics. 2. Chest discomfort does not appear to be cardiac. Echocardiogram was done showed evidence of old NC with ejection fraction 55% and mild mitral regurgitation. Patient will be seen in consultation by cardiology for further evaluation. 3. History of CAD post CABG 3. Continue patient on metoprolol 50 mg orally twice every day, Lipitor 10 mg orally once every day, aspirin 81 mg orally once every day. 4. Hypertension and hypertensive cardiovascular disease. Continue metoprolol 50 mg orally twice every day, losartan 100 mg orally once every day, hydralazine 50 mg orally twice every day. 5. Diabetes mellitus type 2. Continue patient on Victoza 1.8 mg subcu daily, continue glyburide 2 mg orally twice every day, continue blood glucose checked before each meal and at bedtime. 6. Hyperlipidemia. Continue Lipitor 10 mg orally once every day. 7. History of kidney stones. Continue patient on sodium bicarbonate 1950 mg orally 3 times every day. 8. Diabetic retinopathy. Follow-up with ophthalmology as an outpatient. 9. Patient was admitted as an observation. 10. Patient is full code.
--- NOTE | 2018-07-23 12:34 | P.DS ---
Providers Date of admission: 07/22/18 16:21 Expected date of discharge: 07/23/18 Attending physician: Gal Obrien Consults: 07/22/18 16:22 Consult Physician Routine Consulting Provider: Guadalupe Dunn Consult Reason/Comments: Chest pain, near syncope Do you want consulting provider notified?: Yes Primary care physician: Phil Thomas [facility] Course: This is a 72-year-old male one of Dr. Thomas with a previous medical history significant for hypertension and hypertensive cardio vascular disease with left ventricular hypertrophy, diabetes mellitus type 2 with diabetic polyneuropathy and diabetic retinopathy, history of prostate cancer status post robotic-assisted laparoscopic prostatectomy that was done in 2016, coronary artery disease status post coronary artery bypass graft for 3 vessels back in 2009 patient follows up with Dr. Dunn a regular basis, he was seen recently about a month ago and he was doing fine and he had a stress test according to him about a year ago that was negative for stress-induced ischemia, patient was in his usual state of health about today when he was emptying stuff from his truck and suddenly developed to have a a dizzy spell with lightheadedness and at the same time felt a funny feeling in the left chest patient's ended up bringing him to the emergency room for evaluation he was found to have a mild prerenal azotemia, he was placed on IV fluid resuscitation was given meclizine in the ER but because of the presentation he was admitted to the hospital for evaluation by cardiology, patient was placed on the monitor over the next 23 hours and was negative no evidence of any acute arrhythmias, patient had an echocardiogram that showed ejection fraction 55% with an old hypokinesia in the inferior leads and mitral regurgitation and tricuspid regurgitation, he was seen in consultation by cardiology as well for further evaluation and treatment. 4/5: troponins have been negative. Patient denies having any chest pain is completely resolved. He states he has been ambulating in the hallway without difficulties. No lightheadedness or dizziness, chest pain. Patient has been seen by cad technician and is feeling well this morning is anxious to go home. He did have a stress test last year with normal findings according to the patient. Patient was cleared by cardiology for discharge home and follow up with Dr. Dunn in one week.patient will be discharged home today in stable condition. Discharge diagnoses: 1. Dizziness and lightheadedness thought to be due to prerenal azotemia. 2. Chest discomfort does not appear to be cardiac. 3. History of CAD post CABG 3. 4. Hypertension and hypertensive cardiovascular disease. 5. Diabetes mellitus type 2. 6. Hyperlipidemia. 7. History of kidney stones. 8. Diabetic retinopathy. discharge plan: Home Impression and plan of care have been directed as dictated by the signing physician. Bev Kidd nurse practitioner acting as scribe for signing physician. Patient Condition at Discharge: Good Plan - Discharge Summary Discharge Rx Participant: No New Discharge Prescriptions: Continue Metoprolol Tartrate [Lopressor] 50 mg PO BID hydrALAZINE HCL [Apresoline] 50 mg PO BID Aspirin 81 mg PO HS Glimepiride [Amaryl] 1 mg PO AC-BID Sodium Bicarbonate Tab 1,950 mg PO TID Liraglutide [Victoza 3-Kiran] 1.8 mg SQ DAILY Losartan Potassium [Cozaar] 100 mg PO DAILY Atorvastatin Calcium [Lipitor] 10 mg PO HS Discharge Medication List Aspirin 81 mg PO HS 09/11/14 [History] Metoprolol Tartrate [Lopressor] 50 mg PO BID 09/11/14 [History] hydrALAZINE HCL [Apresoline] 50 mg PO BID 09/11/14 [History] Glimepiride [Amaryl] 1 mg PO AC-BID 12/05/15 [History] Liraglutide [Victoza 3-Kiran] 1.8 mg SQ DAILY 12/05/15 [History] Sodium Bicarbonate Tab 1,950 mg PO TID 12/05/15 [History] Losartan Potassium [Cozaar] 100 mg PO DAILY 04/17/16 [History] Atorvastatin Calcium [Lipitor] 10 mg PO HS 08/05/17 [History] Follow up Appointment(s)/Referral(s): Guadalupe Dunn MD [STAFF PHYSICIAN] - 07/30/18 2:00 pm (follow up appointment at [facility]) Phil Thomas MD [Primary Care Provider] - 1 Week Discharge Disposition: HOME SELF-CARE
[2018-07-24 04:21] LABS: Hemoglobin A1C 8.2 % (4.0-6.0)
== END 2018-07-23 12:30 | disposition home or self-care (01) ==
LOC: EC 14:09 → 1SOBS 16:21
PROVIDERS: ADMIT Internal Medicine; ATTEND Internal Medicine
DX: R07.89 Other chest pain (principal); R42 Dizziness and giddiness; H53.8 Other visual disturbances; R79.89 Other specified abnormal findings of blood chemistry; R55 Syncope and collapse; I11.9 Hypertensive heart disease without heart failure; I25.10 Atherosclerotic heart disease of native coronary artery without angina pectoris; E11.319 Type 2 diabetes mellitus with unspecified diabetic retinopathy without macular edema; E11.42 Type 2 diabetes mellitus with diabetic polyneuropathy; R05 Cough; M10.9 Gout, unspecified; E78.5 Hyperlipidemia, unspecified; M19.90 Unspecified osteoarthritis, unspecified site; E78.00 Pure hypercholesterolemia, unspecified; I08.1 Rheumatic disorders of both mitral and tricuspid valves; I83.93 Asymptomatic varicose veins of bilateral lower extremities; Z79.82 Long term (current) use of aspirin; Z79.84 Long term (current) use of oral hypoglycemic drugs; Z79.899 Other long term (current) drug therapy; Z88.8 Allergy status to other drugs, medicaments and biological substances; Z87.891 Personal history of nicotine dependence; I25.2 Old myocardial infarction; Z90.79 Acquired absence of other genital organ(s); Z95.1 Presence of aortocoronary bypass graft; Z87.442 Personal history of urinary calculi; Z85.46 Personal history of malignant neoplasm of prostate; Z98.42 Cataract extraction status, left eye; Z98.41 Cataract extraction status, right eye; Z96.1 Presence of intraocular lens; Z85.828 Personal history of other malignant neoplasm of skin; Z83.3 Family history of diabetes mellitus; Z82.49 Family history of ischemic heart disease and other diseases of the circulatory system; Z84.1 Family history of disorders of kidney and ureter
CPT/HCPCS: 96361 ×3; 96360; 99285; 36415; 93005; 93306; 83880; 80053; 83690; 83735; 84484 ×2; 85025; 85610; 85730; 83036; 71046; G0378 ×2

== ENCOUNTER → 2018-08-10 | Outpatient (CLI) | payer MEDICARE, BC | LOC: LABWHC1 08:38 | PROVIDERS: ATTEND Urology | DX: C61 Malignant neoplasm of prostate (principal) | CPT/HCPCS: 36415; 84153 ==

== ENCOUNTER → 2018-11-03 | Outpatient (CLI) | payer MEDICARE, BC ==
[2018-11-03 15:30] LABS: HCT 44.9 % (39.0-53.0); HGB 14.6 gm/dL (13.0-17.5); MCH 29.7 pg (25.0-35.0); MCHC 32.6 g/dL (31.0-37.0); MCV 91.1 fL (80.0-100.0); Mean Platelet Volume 7.7; Platelet Count 235 k/uL (150-450); RBC 4.92 m/uL (4.30-5.90); RDW 15.3 % (11.5-15.5); WBC 7.1 k/uL (3.8-10.6)
[2018-11-04 00:12] LABS: African American GFR (CKD) 42.3 (60.0-200.0); Anion Gap 10.7 mmol/L (4.00-12.00); Carbon Dioxide 28.3 mmol/L (21.6-31.8)
== END | disposition home or self-care (01) ==
LOC: LABWHC1 15:04
PROVIDERS: ATTEND Internal Medicine Interventional Cardiology
DX: Z01.812 Encounter for preprocedural laboratory examination (principal); I10 Essential (primary) hypertension; I48.3 Typical atrial flutter; I25.810 Atherosclerosis of coronary artery bypass graft(s) without angina pectoris
CPT/HCPCS: 36415; 80051; 82565; 84520; 85027

== ENCOUNTER → 2018-11-04 | Day surgery (SDC) | payer MEDICARE, BC ==
[~2018-11-04] MED LIST: ASPIRIN 81 MG PO SCH; ATORVASTATIN 20 MG TAB PO SCH; FLECAINIDE 50 MG TAB PO SCH; FLECAINIDE 50 MG TAB PO STA; GLIMEPIRIDE 1 MG TAB PO SCH; METOPROLOL TARTRATE 50 MG TAB PO SCH; NON-FORMULARY DRUG (Liraglutide [Victoza 3-Pak] 1.8 MG) SQ SCH; NON-FORMULARY DRUG (Losartan Potassium [Cozaar] 100 MG) PO SCH; RIVAROXABAN 20 MG TAB PO SCH; SODIUM BICARBONATE TAB 650 MG TAB PO SCH; SODIUM CHLORIDE 0.9% 500 ML 500 ML IV ONE; hydrALAZINE HCL 50 MG TAB PO SCH
[2018-11-04 06:30] LABS: Glucose,Whole Blood 114 mg/dL (75-99)
[2018-11-04 07:15] VITALS: BP 145/81; PULSE 73; RESP 16; TEMP 98
--- NOTE | 2018-11-04 07:45 | PN ---
PROGRESS NOTE Mr. Cruz is a 73-year-old male who was in atrial flutter and who presented to undergo CHAZ guided cardioversion. On presenting to the hospital, he was noted to be in sinus mechanism. In view of that, we will continue present therapy and follow him as an outpatient to see if further evaluation is needed. MMODL / IJN: [id number] /
== END | disposition home or self-care (01) ==
LOC: CATHCVL 06:01
PROVIDERS: ATTEND Internal Medicine Interventional Cardiology
DX: I48.92 Unspecified atrial flutter (principal); Z53.8 Procedure and treatment not carried out for other reasons; I25.10 Atherosclerotic heart disease of native coronary artery without angina pectoris; I47.1 Supraventricular tachycardia; I48.91 Unspecified atrial fibrillation; E11.22 Type 2 diabetes mellitus with diabetic chronic kidney disease; R42 Dizziness and giddiness; M19.90 Unspecified osteoarthritis, unspecified site; E78.2 Mixed hyperlipidemia; N40.0 Benign prostatic hyperplasia without lower urinary tract symptoms; I12.9 Hypertensive chronic kidney disease with stage 1 through stage 4 chronic kidney disease, or unspecified chronic kidney disease; N18.9 Chronic kidney disease, unspecified; Z79.82 Long term (current) use of aspirin; Z79.02 Long term (current) use of antithrombotics/antiplatelets; Z79.899 Other long term (current) drug therapy; Z82.49 Family history of ischemic heart disease and other diseases of the circulatory system; Z95.1 Presence of aortocoronary bypass graft; Z88.8 Allergy status to other drugs, medicaments and biological substances; Z79.01 Long term (current) use of anticoagulants; Z79.4 Long term (current) use of insulin; Z88.5 Allergy status to narcotic agent; Z87.891 Personal history of nicotine dependence

== ENCOUNTER → 2019-01-31 | Outpatient (CLI) | payer MEDICARE, BC ==
[2019-01-31 07:54] LABS: HCT 42.9 % (39.0-53.0); HGB 14.1 gm/dL (13.0-17.5); MCH 30.5 pg (25.0-35.0); MCHC 32.9 g/dL (31.0-37.0); MCV 92.5 fL (80.0-100.0); Mean Platelet Volume 6.4; Platelet Count 223 k/uL (150-450); RBC 4.63 m/uL (4.30-5.90); RDW 13.3 % (11.5-15.5); WBC 5.9 k/uL (3.8-10.6)
[2019-01-31 11:59] LABS: African American GFR (CKD) 52.8 (60.0-200.0); Albumin 4.2 g/dL (3.80-4.90); Albumin/Globulin Ratio 2.21 (1.60-3.17); BUN/Creat Ratio 14.67 Ratio (12.00-20.00); Calcium 9.6 mg/dL (8.7-10.3); Chol/HDL Ratio 3.23; Globulin 1.9 g/dL (1.6-3.3); LDL Cholesterol,Calculated 71.8 mg/dL (0.0-131.0); Potassium 4.9 mmol/L (3.5-5.5); Total Bilirubin 0.8 mg/dL (0.3-1.2); Total Protein 6.1 g/dL (6.2-8.2); VLDL Calculation 17.2 mg/dL (5.00-40.00)
== END | disposition home or self-care (01) ==
LOC: LABWHC1 06:54
PROVIDERS: ATTEND Nurse Practitioner Adult Health
DX: C61 Malignant neoplasm of prostate (principal); E78.2 Mixed hyperlipidemia; I25.10 Atherosclerotic heart disease of native coronary artery without angina pectoris; I48.3 Typical atrial flutter
CPT/HCPCS: 36415; 80053; 80061; 84153; 85027

== ENCOUNTER → 2019-02-22 | Outpatient (CLI) | payer MEDICARE, BC ==
--- NOTE | 2019-02-22 13:21 | US ---
EXAMINATION TYPE: US venous doppler duplex LE RT DATE OF EXAM: 02/22/2019 12:41 PM COMPARISON: NONE CLINICAL HISTORY: M25.571 Pain in right ankle. contusion to right ankle 8 days ago , no h/o dvt SIDE PERFORMED: Right TECHNIQUE: The lower extremity deep venous system is examined utilizing real time linear array sonog les with graded compression, doppler sonography and color-flow sonography. VESSELS IMAGED: External Iliac Vein (EIV) Common Femoral Vein Deep Femoral Vein Greater Saphenous Vein * Femoral Vein Popliteal Vein Small Saphenous Vein * Proximal Calf Veins (* superficial vessels) Right Leg: Appears negative for DVT *tech impression to office @12:45Grayscale, color doppler, spectral doppler imaging performed of the deep veins of the right lower extremity. There is normal flow, compressibility, vascular waveforms. Moderate diffuse Subcutaneous edema noted distally towards end of study. IMPRESSION: No ultrasound evidence for acute DVT in the right lower extremity.
== END | disposition home or self-care (01) ==
LOC: RADUSWWP 12:21
PROVIDERS: ATTEND Orthopaedic Surgery
DX: S90.01XD Contusion of right ankle, subsequent encounter (principal); L03.115 Cellulitis of right lower limb; I80.9 Phlebitis and thrombophlebitis of unspecified site

== ENCOUNTER → 2019-07-08 | Outpatient (CLI) | payer MEDICARE, BC ==
[2019-07-08 11:10] LABS: Chol/HDL Ratio 3.6; LDL Cholesterol,Calculated 81.2 mg/dL (0.0-131.0); VLDL Calculation 27.8 mg/dL (5.00-40.00)
[2019-07-08 11:11] LABS: African American GFR (CKD) 48.8 (60.0-200.0); Albumin 4.6 g/dL (3.80-4.90); Albumin/Globulin Ratio 2.09 (1.60-3.17); Anion Gap 8.6 mmol/L (4.00-12.00); BUN/Creat Ratio 18.75 Ratio (12.00-20.00); Calcium 9.6 mg/dL (8.7-10.3); Carbon Dioxide 28.4 mmol/L (21.6-31.8); Globulin 2.2 g/dL (1.6-3.3); Non-African American GFR(CKD) 42.1 (60.0-200.0); Potassium 5.4 mmol/L (3.5-5.5); Total Bilirubin 1.5 mg/dL (0.3-1.2); Total Protein 6.8 g/dL (6.2-8.2)
== END | disposition home or self-care (01) ==
LOC: LABWHC1 07:23
PROVIDERS: ATTEND Nurse Practitioner Adult Health
DX: N18.9 Chronic kidney disease, unspecified (principal); E78.2 Mixed hyperlipidemia
CPT/HCPCS: 36415; 80053; 80061

== ENCOUNTER → 2019-11-30 | Outpatient (CLI) | payer MEDICARE, BC ==
--- NOTE | 2019-11-30 15:35 | US ---
EXAMINATION TYPE: US kidneys/renal and bladder DATE OF EXAM: 11/30/2019 COMPARISON: CT 06/21/2018 CLINICAL HISTORY: 74-year-old male R79.89 ELEVATED SERUM CREATININE. TECHNIQUE: Multiple sonographic images of the kidneys and bladder are obtained. FINDINGS: EXAM MEASUREMENTS: Right Kidney: 11.3 x 5.6 x 6.2 cm Left Kidney: 10.4 x 5.4 x 5.5 cm No hydronephrosis on either side. Bladder: wnl Bilateral Jets seen: Yes IMPRESSION: No hydronephrosis.
== END | disposition home or self-care (01) ==
LOC: RADUSWWP 13:30
PROVIDERS: ATTEND Family Medicine
DX: R79.89 Other specified abnormal findings of blood chemistry (principal)
CPT/HCPCS: 76770

== ENCOUNTER → 2020-01-10 | Outpatient (CLI) | payer MEDICARE, BC ==
[2020-01-10 20:00] LABS: African American GFR (CKD) 52.4 (60.0-200.0); Albumin/Globulin Ratio 2.11 (1.60-3.17); Anion Gap 7.2 mmol/L (4.00-12.00); Calcium 8.8 mg/dL (8.7-10.3); Carbon Dioxide 25.8 mmol/L (21.6-31.8); Chol/HDL Ratio 3.57; Globulin 1.9 g/dL (1.6-3.3); Non-African American GFR(CKD) 45.2 (60.0-200.0); Potassium 4.7 mmol/L (3.5-5.5); Total Bilirubin 1.2 mg/dL (0.3-1.2); Total Protein 5.9 g/dL (6.2-8.2)
== END | disposition home or self-care (01) ==
LOC: LABWHC1 07:37
PROVIDERS: ATTEND Nurse Practitioner Adult Health
DX: E78.2 Mixed hyperlipidemia (principal); N18.9 Chronic kidney disease, unspecified
CPT/HCPCS: 36415; 80053; 80061

== ENCOUNTER → 2020-02-13 | Outpatient (CLI) | payer MEDICARE, BC | END | disposition home or self-care (01) | LOC: LABWHC1 07:47 | PROVIDERS: ATTEND Urology | DX: C61 Malignant neoplasm of prostate (principal) | CPT/HCPCS: 36415; 84153 ==

== ENCOUNTER 2020-03-13 21:30 | Emergency (ER) | payer MEDICARE, BC ==
[2020-03-13 21:37] VITALS: TEMP 97.9
[2020-03-13 22:40] LABS: Basophils # (A) 0.1 k/uL (0-0.2); Basophils % (A) 1 %; Eosinophils # (A) 0.2 k/uL (0-0.7); Eosinophils % (A) 3 %; HCT 45.5 % (39.0-53.0); HGB 15.1 gm/dL (13.0-17.5); Lymphocytes # (A) 1.6 k/uL (1.0-4.8); Lymphocytes % (A) 22 %; MCHC 33.3 g/dL (31.0-37.0); Mean Platelet Volume 8.1; Monocytes # (A) 0.6 k/uL (0-1.0); Monocytes % (A) 8 %; Neutrophils # (A) 4.8 k/uL (1.3-7.7); Neutrophils % (A) 65 %; Platelet Count 214 k/uL (150-450); RBC 4.89 m/uL (4.30-5.90); RDW 13.2 % (11.5-15.5); WBC 7.3 k/uL (3.8-10.6)
[2020-03-13 22:47] LABS: INR 1.1 (<1.2); Partial Thromboplastin Time 30.3 sec (22.0-30.0); Prothrombin Time 11.1 sec (9.0-12.0)
--- NOTE | 2020-03-13 23:03 | ED ---
General Adult HPI - General Chief complaint: Recheck/Abnormal Lab/Rx Stated complaint: High potassium Time Seen by Provider: 03/13/20 22:03 Source: patient, RN notes reviewed, old records reviewed Mode of arrival: ambulatory Limitations: no limitations - History of Present Illness Initial comments: 74-year-old male presenting for evaluation of abnormal outpatient lab tests. Patient was told his potassium was 6.2. He has no previous history of abnormal electrolytes. He is currently being treated for hypertension, diabetes, he is uncertain if he has any known TB dysfunction. He denies chest pain or dyspnea. Denies abdominal pain nausea vomiting or diarrhea. Denies fever. He has no complaints. - Related Data Home Medications Medication Instructions Recorded Confirmed Aspirin 81 mg PO HS 09/11/14 11/04/18 Metoprolol Tartrate [Lopressor] 50 mg PO BID 09/11/14 11/04/18 hydrALAZINE HCL [Apresoline] 50 mg PO BID 09/11/14 11/04/18 Glimepiride [Amaryl] 1 mg PO AC-BID 12/05/15 11/04/18 Liraglutide [Victoza 3-Kiran] 1.8 mg SQ DAILY 12/05/15 11/04/18 Sodium Bicarbonate Tab 1,950 mg PO TID 12/05/15 11/04/18 Losartan Potassium [Cozaar] 100 mg PO DAILY 04/17/16 11/04/18 Atorvastatin Calcium [Lipitor] 10 mg PO HS 08/05/17 11/04/18 Rivaroxaban [Xarelto] 20 mg DAILY 11/04/18 11/04/18 Previous Rx's Medication Instructions Recorded Flecainide [Tambocor] 50 mg PO Q12HR #180 tablet 11/04/18 Allergies Allergy/AdvReac Type Severity Reaction Status Date / Time allopurinol Allergy Unknown Verified 03/13/20 21:37 choline fenofibrate Allergy Unknown Verified 03/13/20 21:37 [From Trilipix] febuxostat [From Uloric] Allergy Unknown Verified 03/13/20 21:37 metformin Allergy Unknown Verified 03/13/20 21:37 Review of Systems ROS Statement: Those systems with pertinent positive or pertinent negative responses have been documented in the HPI. ROS Other: All systems not noted in ROS Statement are negative. Past Medical History Past Medical History: Coronary Artery Disease (CAD), Cancer, Diabetes Mellitus, Eye Disorder, Hyperlipidemia, Hypertension, Myocardial Infarction (SC), Osteoarthritis (OA), Prostate Disorder, Renal Disease, Skin Disorder Additional Past Medical History / Comment(s): hx kidney stones(takes sodium bicarb), varicose veins bilaterally, prostate cancer, hx gout, hx skin cancer, diabetic retinopathy Last Myocardial Infarction Date:: 2007 History of Any Multi-Drug Resistant Organisms: None Reported Past Surgical History: Coronary Bypass/CABG, Heart Catheterization, Prostate Surgery Additional Past Surgical History / Comment(s): 12/14/15 Robot assisted l aparoscopic prostatectomy bilateral pelvic lymhadenectomy. 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 Past Anesthesia/Blood Transfusion Reactions: No Reported Reaction Past Psychological History: No Psychological Hx Reported Past Alcohol Use History: None Reported Past Drug Use History: None Reported - Past Family History Sister(s) Family Medical History: Diabetes Mellitus (Patient has one sister with diabetes ) Father Family Medical History: Coronary Artery Disease (CAD) (Father at age of 87 after coronary artery bypass graft and also had acute renal failure.) Mother Family Medical History: Coronary Artery Disease (CAD) (Mother at age 75 from diabetes and she had complications due to CABG.), Diabetes Mellitus Brother(s) Family Medical History: AICD/Pacemaker (Patient has 2 brothers one of them with permanent pacemaker placement.) Son(s) Family Medical History: No Reported History (Patient has 2 sons no major medical problems.) Daughter(s) Family Medical History: No Reported History (Patient has one daughter no major medical problems.) General Exam Limitations: no limitations General appearance: alert, in no apparent distress Head exam: Present: atraumatic, normocephalic Eye exam: Present: normal appearance, PERRL ENT exam: Present: normal exam Neck exam: Present: normal inspection. Absent: tenderness, meningismus Respiratory exam: Present: normal lung sounds bilaterally. Absent: respiratory distress, wheezes Cardiovascular Exam: Present: regular rate, normal rhythm GI/Abdominal exam: Present: soft. Absent: distended, tenderness, guarding Extremities exam: Present: normal inspection. Absent: pedal edema Neurological exam: Present: alert, oriented X3, CN II-XII intact. Absent: motor sensory deficit Psychiatric exam: Present: normal affect, normal mood Skin exam: Present: warm, dry, intact. Absent: cyanosis, diaphoretic Course Vital Signs 03/13/20 21:34 Temperature 97.9 F Pulse Rate 71 Respiratory 16 Rate Blood Pressure 229/102 O2 Sat by Pulse 99 Oximetry EKG Findings - EKG Comments: EKG Findings:: Sinus rhythm with a first-degree AV block, left bundle branch block, rate is 71, OH interval 260, QRS duration 152, QTC 473, this appears to be change compared to EKG in October 2018. Medical Decision Making - Medical Decision Making 74-year-old male with abnormal outpatient lab. Potassium is 6.2. This is redrawn, repeat is 5.0. He does have chronic kidney disease which appears close to baseline, recent of 1.5, 1.8 today. Patient's EKG does show changes he has no active chest pain. He will follow with his biomedical analytical scientist regarding these changes. His troponin is negative. Other laboratory testing is unremarkable. - Lab Data Result diagrams: 03/13/20 22:31 03/13/20 22:31 Lab Results 03/13/20 03/13/20 03/13/20 Range/Units 22:31 22:31 22:31 WBC 7.3 (3.8-10.6) k/uL RBC 4.89 (4.30-5.90) m/uL Hgb 15.1 (13.0-17.5) gm/dL Hct 45.5 (39.0-53.0) % MCV 93.0 (80.0-100.0) fL MCH 31.0 (25.0-35.0) pg MCHC 33.3 (31.0-37.0) g/dL RDW 13.2 (11.5-15.5) % Plt Count 214 (150-450) k/uL MPV 8.1 Neutrophils % 65 % Lymphocytes % 22 % Monocytes % 8 % Eosinophils % 3 % Basophils % 1 % Neutrophils # 4.8 (1.3-7.7) k/uL Lymphocytes # 1.6 (1.0-4.8) k/uL Monocytes # 0.6 (0-1.0) k/uL Eosinophils # 0.2 (0-0.7) k/uL Basophils # 0.1 (0-0.2) k/uL PT 11.1 (9.0-12.0) sec INR 1.1 (<1.2) APTT 30.3 H (22.0-30.0) sec Sodium 137 (137-145) mmol/L Potassium 5.0 (3.5-5.1) mmol/L Chloride 100 (98-107) mmol/L Carbon Dioxide 26 (22-30) mmol/L Anion Gap 11 mmol/L BUN 30 H (9-20) mg/dL Creatinine 1.84 H (0.66-1.25) mg/dL Est GFR (CKD-EPI)AfAm 41 (>60 ml/min/1.73 sqM) Est GFR (CKD-EPI)NonAf 35 (>60 ml/min/1.73 sqM) Glucose 275 H (74-99) mg/dL Calcium 9.3 (8.4-10.2) mg/dL Magnesium 1.9 (1.6-2.3) mg/dL Total Bilirubin 1.2 (0.2-1.3) mg/dL AST 27 (17-59) U/L ALT 18 (4-49) U/L Alkaline Phosphatase 106 (38-126) U/L Troponin I (0.000-0.034) ng/mL Total Protein 6.8 (6.3-8.2) g/dL Albumin 4.1 (3.5-5.0) g/dL 03/13/ Range/Units 22:31 WBC (3.8-10.6) k/uL RBC (4.30-5.90) m/uL Hgb (13.0-17.5) gm/dL Hct (39.0-53.0) % MCV (80.0-100.0) fL MCH (25.0-35.0) pg MCHC (31.0-37.0) g/dL RDW (11.5-15.5) % Plt Count (150-450) k/uL MPV Neutrophils % % Lymphocytes % % Monocytes % % Eosinophils % % Basophils % % Neutrophils # (1.3-7.7) k/uL Lymphocytes # (1.0-4.8) k/uL Monocytes # (0-1.0) k/uL Eosinophils # (0-0.7) k/uL Basophils # (0-0.2) k/uL PT (9.0-12.0) sec INR (<1.2) APTT (22.0-30.0) sec Sodium (137-145) mmol/L Potassium (3.5-5.1) mmol/L Chloride (98-107) mmol/L Carbon Dioxide (22-30) mmol/L Anion Gap mmol/L BUN (9-20) mg/dL Creatinine (0.66-1.25) mg/dL Est GFR (CKD-EPI)AfAm (>60 ml/min/1.73 sqM) Est GFR (CKD-EPI)NonAf (>60 ml/min/1.73 sqM) Glucose (74-99) mg/dL Calcium (8.4-10.2) mg/dL Magnesium (1.6-2.3) mg/dL Total Bilirubin (0.2-1.3) mg/dL AST (17-59) U/L ALT (4-49) U/L Alkaline Phosphatase (38-126) U/L Troponin I <0.012 (0.000-0.034) ng/mL Total Protein (6.3-8.2) g/dL Albumin (3.5-5.0) g/dL Disposition Clinical Impression: Chronic kidney disease Disposition: HOME SELF-CARE Condition: Good Instructions (If sedation given, give patient instructions): Chronic Kidney Disease (ED) Is patient prescribed a controlled substance at d/c from ED?: No Referrals: [facility],Clinic [Primary Care Provider] - 1-2 days Suzi Harris MD [STAFF PHYSICIAN] - 1-2 days Time of Disposition: 00:02
[2020-03-13 23:36] LABS: Albumin 4.1 g/dL (3.5-5.0); Calcium 9.3 mg/dL (8.4-10.2); Magnesium 1.9 mg/dL (1.6-2.3); Total Bilirubin 1.2 mg/dL (0.2-1.3); Total Protein 6.8 g/dL (6.3-8.2)
[2020-03-14 00:26] VITALS: BP 180/79; PULSE 89; RESP 18
== END 2020-03-14 00:26 | disposition home or self-care (01) ==
LOC: EC 21:30
DX: I12.9 Hypertensive chronic kidney disease with stage 1 through stage 4 chronic kidney disease, or unspecified chronic kidney disease (principal); E11.22 Type 2 diabetes mellitus with diabetic chronic kidney disease; N18.9 Chronic kidney disease, unspecified; E11.319 Type 2 diabetes mellitus with unspecified diabetic retinopathy without macular edema; E78.5 Hyperlipidemia, unspecified; I25.2 Old myocardial infarction; M19.90 Unspecified osteoarthritis, unspecified site; Z79.82 Long term (current) use of aspirin; Z79.84 Long term (current) use of oral hypoglycemic drugs; Z79.899 Other long term (current) drug therapy; Z88.8 Allergy status to other drugs, medicaments and biological substances; Z95.5 Presence of coronary angioplasty implant and graft; Z95.1 Presence of aortocoronary bypass graft; Z98.42 Cataract extraction status, left eye; Z98.41 Cataract extraction status, right eye; Z96.1 Presence of intraocular lens; Z89.422 Acquired absence of other left toe(s); Z85.46 Personal history of malignant neoplasm of prostate; Z85.828 Personal history of other malignant neoplasm of skin
CPT/HCPCS: 36415; 80053; 83735; 84484; 85025; 85610; 85730; 93005; 99285

== ENCOUNTER → 2020-07-23 | Outpatient (CLI) | payer MEDICARE, BC ==
[2020-07-23 11:57] LABS: African American GFR (CKD) 48.5 (60.0-200.0); Albumin 4.3 g/dL (3.80-4.90); Albumin/Globulin Ratio 2.15 (1.60-3.17); Anion Gap 10.9 mmol/L (4.00-12.00); BUN/Creat Ratio 18.13 Ratio (12.00-20.00); Calcium 9.2 mg/dL (8.7-10.3); Carbon Dioxide 22.1 mmol/L (21.6-31.8); Chol/HDL Ratio 3.45; LDL Cholesterol,Calculated 69.4 mg/dL (0.0-131.0); Non-African American GFR(CKD) 41.8 (60.0-200.0); Potassium 5.4 mmol/L (3.5-5.5); Total Bilirubin 1.1 mg/dL (0.3-1.2); Total Protein 6.3 g/dL (6.2-8.2); VLDL Calculation 23.6 mg/dL (5.00-40.00)
== END | disposition home or self-care (01) ==
LOC: LABWHC1 07:17
PROVIDERS: ATTEND Internal Medicine Interventional Cardiology
DX: E78.2 Mixed hyperlipidemia (principal); I10 Essential (primary) hypertension
CPT/HCPCS: 36415; 80053; 80061

== ENCOUNTER → 2021-01-18 | Outpatient (CLI) | payer MEDICARE, BC ==
[2021-01-18 20:30] LABS: LDL Cholesterol,Calculated 65.2 mg/dL (0.0-131.0); VLDL Calculation 21.4 mg/dL (5.00-40.00)
[2021-01-18 20:31] LABS: African American GFR (CKD) 56.1 (60.0-200.0); Albumin 4.1 g/dL (3.8-4.9); Albumin/Globulin Ratio 1.87 (1.60-3.17); Anion Gap 14.3 mmol/L (4.00-12.00); BUN/Creat Ratio 20.28 Ratio (12.00-20.00); Blood Urea Nitrogen 28.6 mg/dL (9.0-27.0); Calcium 9.5 mg/dL (8.7-10.3); Carbon Dioxide 21.9 mmol/L (21.6-31.8); Chol/HDL Ratio 3.09 Ratio; Globulin 2.2 g/dL (1.6-3.3); HDL Cholesterol 41.4 mg/dL (40.00-60.00); Non-African American GFR(CKD) 48.4 (60.0-200.0); Potassium 5.1 mmol/L (3.5-5.5); Total Bilirubin 1.2 mg/dL (0.30-1.20); Total Protein 6.3 g/dL (6.2-8.2)
== END | disposition home or self-care (01) ==
LOC: LABWHC1 07:23
PROVIDERS: ATTEND Internal Medicine Endocrinology, Diabetes & Metabolism
DX: E11.65 Type 2 diabetes mellitus with hyperglycemia (principal)
CPT/HCPCS: 36415; 80053; 80061; 82043; 82570; 83036; 84443

== ENCOUNTER → 2021-09-12 | Outpatient (CLI) | payer MEDICARE, BC ==
[2021-09-12 14:46] LABS: ALT 15 U/L (10-49); AST 19 U/L (14-35); African American GFR (CKD) 48.1 (60.0-200.0); Albumin 4.2 g/dL (3.8-4.9); Alkaline Phosphatase 87 U/L (41-126); BUN/Creat Ratio 13.63 Ratio (12.00-20.00); Blood Urea Nitrogen 21.8 mg/dL (9.0-27.0); Calcium 9.8 mg/dL (8.7-10.3); Carbon Dioxide 27.3 mmol/L (20.0-27.5); Chloride 103 mmol/L (96-109); Chol/HDL Ratio 2.81 Ratio; Globulin 2.8 g/dL (1.6-3.3); Glucose 155 mg/dL (70-110); LDL Cholesterol,Calculated 59.1 mg/dL (0.0-131.0); Non-African American GFR(CKD) 41.5 (60.0-200.0); Sodium 140 mmol/L (135-145)
== END | disposition home or self-care (01) ==
LOC: LABWHC1 06:56
PROVIDERS: ATTEND Internal Medicine Endocrinology, Diabetes & Metabolism
DX: E11.65 Type 2 diabetes mellitus with hyperglycemia (principal)
CPT/HCPCS: 36415; 80053; 80061; 82043; 82570; 83036; 84443

== ENCOUNTER → 2022-05-14 | Outpatient (CLI) | payer MEDICARE, BC ==
[2022-05-14 10:56] LABS: ALT 14 U/L (10-49); AST 19 U/L (14-35); African American GFR (CKD) 50.5 (60.0-200.0); Albumin 4.2 g/dL (3.8-4.9); Albumin/Globulin Ratio 1.54 (1.60-3.17); Alkaline Phosphatase 92 U/L (41-126); BUN/Creat Ratio 15.03 Ratio (12.00-20.00); Calcium 9.7 mg/dL (8.7-10.3); Carbon Dioxide 28.5 mmol/L (20.0-27.5); Chloride 101 mmol/L (96-109); Chol/HDL Ratio 3.26 Ratio; Globulin 2.7 g/dL (1.6-3.3); Glucose 153 mg/dL (70-110); LDL Cholesterol,Calculated 74.5 mg/dL (0.0-131.0); Non-African American GFR(CKD) 43.5 (60.0-200.0); Sodium 141 mmol/L (135-145); Total Protein 6.9 g/dL (6.2-8.2); VLDL Calculation 18.36 mg/dL (5.00-40.00)
== END | disposition home or self-care (01) ==
LOC: LABWHC1 07:01
PROVIDERS: ATTEND Internal Medicine Interventional Cardiology
DX: E78.2 Mixed hyperlipidemia (principal)
CPT/HCPCS: 36415; 80053; 80061

== ENCOUNTER 2022-05-20 05:39 | Day surgery (SDC) | payer MEDICARE, BC ==
[2022-05-15 12:02] VITALS: BMI 27.9
[2022-05-20] MEDS ORDERED: LACTATED RINGERS 1,000 ML IV ONE (06:15)
[2022-05-20 06:40] LABS: Glucose,Whole Blood 159 mg/dL (70-110)
[2022-05-20 06:47] VITALS: TEMP 96.8
[2022-05-20] MEDS ORDERED: PROPOFOL 10 MG/ML 20 ML VIAL IV ONE (07:16)
[2022-05-20] MEDS ORDERED: BENZOCAINE SPRAY 1 CAN TOPICAL ONE (07:18)
--- NOTE | 2022-05-20 07:37 | P.PCN ---
Date of Procedure: 05/20/22 Description of Procedure: Indication: Atrial flutter Procedure Description: After explaining the procedure to the patient, it's risk and complications, blood pressure, heart rate and O2 saturation were monitored. The throat was sprayed with Cetacaine. Patient received sedation per anesthesia department. The probe was introduced into the esophagus without difficulty. Images were obtained. Following that, the probe was removed. There was no immediate complication. Findings: Left atrial size is mildly dilated, left atrial appendage is normal, left ventricle size is normal ventricle systolic function is borderline normal with ejection fraction of 50-55%. Mild mitral annulus calcification was noted, the aortic valve is a tricuspid valve with mild atherosclerotic changes with preserved opening. The tricuspid valve is normal. Descending thoracic aorta revealed mild atherosclerotic changes. No pericardial effusion was noted. Contrast bubble study revealed no shunting across the intra-atrial atrial septum. Doppler: Pulse wave and color Doppler were obtained, and revealed mild to moderate multi- jet of mitral regurgitation was mild tricuspid and trace aortic regurgitation. There was no shunting by color Doppler study Conclusion: 1. Mildly dilated left atrium with normal appearance of the left atrial appendage 2. The ventricle systolic function is borderline normal 3. Nlcp-or-olffqjop mitral was mild tricuspid and trace aortic regurgitation 4. No pericardial effusion 5. No shunting across the intra-atrial septum Cardioversion: After obtaining CHAZ and sedated state a synchronized biphasic cardioversion using 150 J was performed with mosque of sinus mechanism, there was no immediate complications.
[2022-05-20] MEDS ORDERED: SODIUM CHLORIDE 0.9% 1,000 ML IV SCH ×2 (07:45→08:00)
[2022-05-20 07:53] VITALS: RESP 16
[2022-05-20] MEDS ORDERED: NON FORMULARY DRUG (Losartan Potassium [Cozaar] 100 MG Tablet) PO SCH (09:00)
[2022-05-20] MEDS ORDERED: NON FORMULARY DRUG (Liraglutide [Victoza 3-Pak] 0.6 MG/0.1 ML Pen.Injctr) SQ SCH (09:00)
[2022-05-20] MEDS ORDERED: hydrALAZINE HCL 50 MG TAB PO SCH (09:00)
[2022-05-20] MEDS ORDERED: SODIUM BICARBONATE TAB 650 MG TAB PO SCH (09:00)
[2022-05-20] MEDS ORDERED: FLECAINIDE 50 MG TAB PO SCH (09:00)
[2022-05-20] MEDS ORDERED: METOPROLOL TARTRATE 50 MG TAB PO SCH (09:00)
[2022-05-20] MEDS ORDERED: RIVAROXABAN 20 MG TAB PO SCH (09:00)
[2022-05-20 09:17] VITALS: BP 124/70; PULSE 70
[2022-05-20] MEDS ORDERED: GLIMEPIRIDE 1 MG TAB PO SCH (17:30)
[2022-05-20] MEDS ORDERED: ATORVASTATIN 20 MG TAB PO SCH (21:00)
== END 2022-05-20 09:48 | disposition home or self-care (01) ==
LOC: OR 05:39
PROVIDERS: ATTEND Internal Medicine Interventional Cardiology
DX: I48.3 Typical atrial flutter (principal); I36.1 Nonrheumatic tricuspid (valve) insufficiency; I25.10 Atherosclerotic heart disease of native coronary artery without angina pectoris; I10 Essential (primary) hypertension; E78.5 Hyperlipidemia, unspecified; E11.9 Type 2 diabetes mellitus without complications; F17.210 Nicotine dependence, cigarettes, uncomplicated; Z79.4 Long term (current) use of insulin; Z95.1 Presence of aortocoronary bypass graft; Z79.891 Long term (current) use of opiate analgesic; Z79.01 Long term (current) use of anticoagulants; Z79.02 Long term (current) use of antithrombotics/antiplatelets; Z79.82 Long term (current) use of aspirin; Z88.8 Allergy status to other drugs, medicaments and biological substances; Z79.84 Long term (current) use of oral hypoglycemic drugs
CPT/HCPCS: 93312; 93320; 93005; 93325; 92960; J2704

== ENCOUNTER → 2022-09-16 | Outpatient (CLI) | payer MEDICARE, BC ==
[2022-09-16 11:23] LABS: ALT 17 U/L (10-49); AST 14 U/L (14-35); African American GFR (CKD) 51.7 (60.0-200.0); Albumin 4.2 g/dL (3.8-4.9); Alkaline Phosphatase 96 U/L (41-126); BUN/Creat Ratio 19.87 Ratio (12.00-20.00); Blood Urea Nitrogen 29.8 mg/dL (9.0-27.0); Calcium 9.7 mg/dL (8.7-10.3); Carbon Dioxide 25.9 mmol/L (20.0-27.5); Chloride 102 mmol/L (96-109); Chol/HDL Ratio 3.29 Ratio; Globulin 2.1 g/dL (1.6-3.3); Glucose 164 mg/dL (70-110); LDL Cholesterol,Calculated 78.8 mg/dL (0.0-131.0); Non-African American GFR(CKD) 44.6 (60.0-200.0); Potassium 4.7 mmol/L (3.5-5.5); Sodium 139 mmol/L (135-145); Total Protein 6.3 g/dL (6.2-8.2)
== END | disposition home or self-care (01) ==
LOC: LABWHC1 06:59
PROVIDERS: ATTEND Internal Medicine Clinical Cardiac Electrophysiology
DX: I48.3 Typical atrial flutter (principal); E11.65 Type 2 diabetes mellitus with hyperglycemia; E78.2 Mixed hyperlipidemia
CPT/HCPCS: 36415; 80053; 80061; 82043; 82570; 83036; 84443

== ENCOUNTER → 2022-10-05 | Outpatient (CLI) | payer MEDICARE, BC ==
[2022-10-05 10:15] LABS: HGB 17.5 gm/dL (13.0-17.5); MCH 31.1 pg (25.0-35.0); MCHC 33.1 g/dL (31.0-37.0); MCV 93.8 fL (80.0-100.0); Mean Platelet Volume 8.2; Platelet Count 179 k/uL (150-450); RBC 5.65 m/uL (4.30-5.90); RDW 13.3 % (11.5-15.5); WBC 6.8 k/uL (3.8-10.6)
== END | disposition home or self-care (01) ==
LOC: LABMAIN 09:20
PROVIDERS: ATTEND Internal Medicine Clinical Cardiac Electrophysiology
DX: Z01.812 Encounter for preprocedural laboratory examination (principal); I48.19 Other persistent atrial fibrillation; I48.92 Unspecified atrial flutter
CPT/HCPCS: 85027

== ENCOUNTER 2022-10-06 09:27 | Day surgery (SDC) | payer MEDICARE, BC ==
[~2022-10-06 09:27] MED LIST changes: -ASPIRIN 81 MG PO SCH; -ATORVASTATIN 20 MG TAB PO SCH; -FLECAINIDE 50 MG TAB PO SCH; -FLECAINIDE 50 MG TAB PO STA; -GLIMEPIRIDE 1 MG TAB PO SCH; -METOPROLOL TARTRATE 50 MG TAB PO SCH; -NON-FORMULARY DRUG (Liraglutide [Victoza 3-Pak] 1.8 MG) SQ SCH; -NON-FORMULARY DRUG (Losartan Potassium [Cozaar] 100 MG) PO SCH; -RIVAROXABAN 20 MG TAB PO SCH; -SODIUM BICARBONATE TAB 650 MG TAB PO SCH; +SODIUM CHLORIDE 0.9% 1,000 ML IV SCH; -SODIUM CHLORIDE 0.9% 500 ML 500 ML IV ONE; -hydrALAZINE HCL 50 MG TAB PO SCH
[2022-10-06 09:46] LABS: Glucose,Whole Blood 159 mg/dL (70-110)
[2022-10-06 09:52] LABS: Basophils % (A) 0 %; Eosinophils # (A) 0.2 k/uL (0-0.7); Eosinophils % (A) 3 %; HCT 54.1 % (39.0-53.0); HGB 17.5 gm/dL (13.0-17.5); Lymphocytes % (A) 15 %; MCH 30.7 pg (25.0-35.0); MCHC 32.4 g/dL (31.0-37.0); Mean Platelet Volume 8.1; Monocytes # (A) 0.6 k/uL (0-1.0); Monocytes % (A) 8 %; Neutrophils % (A) 73 %; Platelet Count 202 k/uL (150-450); RDW 13.2 % (11.5-15.5); WBC 6.8 k/uL (3.8-10.6)
--- NOTE | 2022-10-06 10:52 | P.HPCAR ---
History of Present Illness This is Dr. Rasmussen dictating an H/P on this patient The patient was interviewed and examined IMPRESSION / ASSESSMENT: Persistent atrial fibrillation as failed medical treatment Typical atrial flutter with RVR, symptomatic Underlying left bundle branch block pattern Cardiac disease status post coronary artery bypass grafting in 2007 Type 2 diabetes Normal TSH Stage IIIB chronic kidney disease PLAN: Proceed with A. fib ablation with pulmonary vein isolation and linear ablation left atrial roof Ablation for typical atrial flutter Continue anticoagulation HPI Patient feels a lot better after stopping flecainide. He was complaining of being very tired and fatigued. He denies any dizziness lightheadedness loss of consciousness or chest discomfort in the last one to 2 weeks No chest pain no undue shortness of breath ROS: No fever chills or rigors, no cough, phlegm or expectoration, no nausea, vomiting or diarrhea, no hematuria, dysuria, no musculoskeletal complaints, no strokes or seizures, no skin lesions. EXAMINATION: Afebrile 98.2F, pulse rate in the 70s, blood pressure 154/71 mmHg Breath sounds are reduced bilaterally but no rhonchi no crackles No JVD Heart sounds S1 and S2 are normal no murmurs No lower extremity edema REVIEW OF LABS, ECG & MEDICAL DATA normal white count To 17.5 Currently xarelto 15 mg daily Physical Exam Vitals: Vital Signs Temp Pulse Resp BP Pulse Ox 10/06/22 09:47 98.2 F 75 18 154/71 97 Intake and Output 10/05/22 10/06/22 10/06/22 22:59 06:59 14:59 Intake Total 20 Balance 20 Intake: IV 20 Other: Weight 87.6 kg Past Medical History Past Medical History: Atrial Flutter, Coronary Artery Disease (CAD), Cancer, Diabetes Mellitus, Eye Disorder, Hyperlipidemia, Hypertension, Myocardial Infarction ([place]), Osteoarthritis (OA), Prostate Disorder, Renal Disease, Skin Disorder Additional Past Medical History / Comment(s): hx kidney stones(takes sodium bicarb), varicose veins bilaterally, prostate cancer, hx gout, hx skin cancer, diabetic retinopathy Last Myocardial Infarction Date:: 2007 History of Any Multi-Drug Resistant Organisms: None Reported Past Surgical History: Coronary Bypass/CABG, Heart Catheterization, Prostate Surgery Additional Past Surgical History / Comment(s): 12/14/15 Robot assisted laparoscopic prostatectomy bilateral pelvic lymhadenectomy. 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 Past Anesthesia/Blood Transfusion Reactions: No Reported Reaction Smoking Status: Never smoker - Past Family History Sister(s) Family Medical History: Diabetes Mellitus Father Family Medical History: Coronary Artery Disease (CAD) Mother Family Medical History: Coronary Artery Disease (CAD), Diabetes Mellitus Brother(s) Family Medical History: AICD/Pacemaker Son(s) Family Medical History: No Reported History Daughter(s) Family Medical History: No Reported History Physical Examination Vital Signs Temp Pulse Resp BP Pulse Ox 10/06/22 09:47 98.2 F 75 18 154/71 97 Intake and Output 10/05/22 10/06/22 10/06/22 22:59 06:59 14:59 Intake Total 20 Balance 20 Intake: IV 20 Other: Weight 87.6 kg Results 10/06/22 09:40 CBC 10/06/22 Range/Units 09:40 WBC 6.8 (3.8-10.6) k/uL RBC 5.70 (4.30-5.90) m/uL Hgb 17.5 (13.0-17.5) gm/dL Hct 54.1 H (39.0-53.0) % Plt Count 202 (150-450) k/uL Current Medications Generic Name Dose Route Start Last Admin Trade Name Freq PRN Reason Stop Dose Admin Sodium Chloride 1,000 mls @ 20 mls/hr 10/06/22 06:21 10/06/22 09:48 Saline 0.9% IV 11/05/22 06:22 20 mls .Q24H LORI Administration Lactated Ringer's 1,000 mls @ 20 mls/hr 10/06/22 06:21 Lactated Ringers IV 11/05/22 06:22 .Q24H LORI Intake and Output 10/05/22 10/06/22 10/06/22 22:59 06:59 14:59 Intake Total 20 Balance 20 Intake: IV 20 Other: Weight 87.6 kg Patient Weight 10/07/22 06:59 Weight 87.6 kg 10/06/22 09:40
[2022-10-06] MEDS ORDERED: HEPARIN SODIUM,PORCINE 10,000 UNIT/ML 1 ML VIAL ONE (10:59)
[2022-10-06] MEDS ORDERED: NEOSTIGMINE 1 MG/ML 10 ML VIAL ONE (10:59)
[2022-10-06] MEDS ORDERED: DEXAMETHASONE SOD PHOSPHATE 4 MG/ML 1 ML VIAL ONE (10:59)
[2022-10-06] MEDS ORDERED: FUROSEMIDE 10 MG/ML 2 ML VIAL ONE (10:59)
[2022-10-06] MEDS ORDERED: PROPOFOL 10 MG/ML 20 ML VIAL IV ONE (10:59)
[2022-10-06] MEDS ORDERED: fentaNYL (PF) 50 MCG/ML 2 ML AMP ONE (10:59)
[2022-10-06] MEDS ORDERED: ONDANSETRON 4 MG/2 ML VIAL ONE (10:59)
[2022-10-06] MEDS ORDERED: GLYCOPYRROLATE 0.2 MG/ML 2 ML VIAL ONE (10:59)
[2022-10-06] MEDS ORDERED: MIDAZOLAM 2 MG/2 ML VIAL ONE (10:59)
[2022-10-06] MEDS ORDERED: SUCCINYLCHOLINE CHLORIDE 200 MG/10 ML VIAL IV ONE (10:59)
[2022-10-06] MEDS ORDERED: ROCURONIUM 10 MG/ML (5 ML VIAL) IV ONE (10:59)
[2022-10-06] MEDS ORDERED: PHENYLEPHRINE-0.9% NACL SYG 1,000 MCG/10 ML SYRINGE ONE (10:59)
[2022-10-06] MEDS ORDERED: ISOPROTERENOL 250 MCG/1.25 ML SYR IV ONE (10:59)
[2022-10-06] MEDS ORDERED: LIDOCAINE 2% INJ 20 MG/ML (2 ML VIAL) ONE (10:59)
[2022-10-06] MEDS ORDERED: HEPARIN SOD,PORK IN 0.45% NACL 25,000 UNIT in 0.45% NACL 1 250ML.BAG IV ONE (11:35)
[2022-10-06] MEDS ORDERED: LIDOCAINE 1% INJ 10MG/ML (20 ML MDV) ONE (11:40)
[2022-10-06] MEDS ORDERED: LIDOCAINE 1% INJ 10MG/ML (30 ML VIAL-PF) SQ ONE (11:41)
[2022-10-06] MEDS ORDERED: HEPARIN SODIUM (1,000 UNIT/ML) 1,000 UNIT in SODIUM CHLORIDE 0.9% 1,000 ML IRRIGATION ONE (13:48)
[2022-10-06] MEDS ORDERED: IOPAMIDOL-370 100ML BTL INJ ONE (13:49)
[2022-10-06] MEDS ORDERED: SODIUM CHLORIDE 0.9% 1,000 ML IV ONE (14:55)
--- NOTE | 2022-10-06 15:11 | P.EPPROC ---
- EP Procedure Note Electrophysiology Procedure Note: PROCEDURE A. fib ablation/PVI/left atrial roof ablation/typical atrial flutter ablation DIAGNOSIS Persistent Atrial fibrillation, symptomatic, refractory to therapy RESULT No left atrial appendage mass seen on intracardiac echo Successful A. fib ablation/pulmonary vein isolation of all veins using cryo- ablation Complete entrance block in all 4 veins confirmed No evidence for phrenic nerve injury Esophageal deflection YES Left atrial roof ablation, successful Diagnostic EP study thereafter induced typical atrial flutter associated with drop in blood pressure Electrical cardioversion with a synchronized shock across the chest YES Successful typical atrial flutter ablation with bidirectional block PROCEDURE DETAILS Written informed consent prior to procedure. Patient brought to the EP lab. General anesthesia given. Heparin administered. A city maintained above 300 seconds Both groins prepped and draped per protocol and venous sheaths placed. Esophagus intubated, circa catheter for temperature monitoring an endoscope for possible esophageal deflection. Phrenic nerve monitoring performed. Esophageal temperature monitoring performed. Esophageal deflection performed if circa catheter overlapping with the balloon or circa temperature less than 27.5C Intracardiac echocardiography performed. Pericardium evaluated. Left atrial appendage evaluated. Left atrium evaluated along with pulmonary veins Transseptal catheterization performed under fluoroscopic guidance and intracardiac echo guidance Cryoablation sheath exchanged, balloon catheter along with achieve catheter placed in the left atrium. Pulmonary veins isolated in the following sequence: Left superior pulmonary vein followed by left inferior pulmonary vein, followed by right inferior pulmonary vein and lastly right superior pulmonary vein. Phrenic nerve stimulation along with capture thresholds within the SVC and right superior pulmonary vein to identify the phrenic nerve proximity to the cryo- balloon. Pulmonary veins isolated and confirmed with entrance and exit block. Phrenic nerve integrity confirmed at the end of the procedure Ablation of the left atrial roof performed with sequential lesions from the left superior to the right superior pulmonary veins. Ablation of the electrograms confirmed On Isuprel, burst stimulation from the high right atrium induced atrial flutter with RVR with hypertension Electrical cardioversion performed for persistence of atrial fibrillation jessica pite successful ablation. Related frequency ablation for typical atrial flutter with 3-D electro-anatomic mapping Complete bidirectional block differential pacing Diagnostic catheters for the high right atrium, His bundle, coronary sinus placed. LA and RA pressures recorded RA pressure: 18/5/10 LA pressure: 21/6/15 Diagnostic EP study with coronary sinus pacing and recording Baseline measurements: Sinus cycle length 773 ms, HI interval 170 ms and QRS 112 ms. QT interval 393 ms AH 78 and HV interval 56 ms Sinus node recovery times at 600, 500 and, 400 ms were 1355, 1350 and 1261 ms respectively. Prolonged corrected sinus node recovery times AV node Wenckebach block 390 ms Burst stimulation from the coronary sinus and from the high right atrium performed on and off Isuprel Following VVI and after atrial fibrillation, atrial fibrillation that organized to typical atrial flutter induced Entrainment mapping of performed from the chemo tricuspid isthmus to confirm typical atrial flutter Patient was hypertensive Electrical cardioversion was first performed Subsequently RF ablation in the chemo tricuspid isthmus to produce complete line of block Subsequently, differential pacing confirmed by directional block across the chemo tricuspid isthmus Venous sheaths were removed and hemostasis assured with a closure device. Patient extubated and transferred to recovery PROCEDURES PERFORMED Diagnostic EP study with attempted arrhythmia induction CS pacing and recording Left and right transseptal catheterization Catheter the mapping of the tachycardia Intracardiac echocardiography Pulmonary vein isolation with transseptal and comprehensive EPS, [id number] Drug infusion, +[id number] Left atrial roof line, +[id number] Linear ablation for typical atrial flutter, +[id number] Electrical cardioversion with a synchronized shock across the chest [id number]
--- NOTE | 2022-10-06 15:13 | P.PRLE ---
RE: Kojo Cruz Dear Alexandra Varma underwent ablation for atrial fibrillation Following that diagnostic EP study induced typical atrial flutter He underwent successful ablation for atrial flutter thereafter He will continue anticoagulation lifelong Prior to the procedure I had already discontinued flecainide He will continue to follow with you and Dr. Dunn as before Sincerely Ilan Rasmussen
[2022-10-06] MEDS ORDERED: HYDROmorphone 0.5 MG/0.5 ML SYRINGE IVP ONE ×2 (15:22→15:37)
[2022-10-06] MEDS ORDERED: ACETAMINOPHEN TAB 325 MG TAB PO PRN (16:08)
[2022-10-06] MEDS ORDERED: ACETAMINOPHEN IV (For NPO) 1,000 MG in EMPTY BAG 1 BAG IVPB ONE (17:00)
[2022-10-06 17:16] LABS: Glucose,Whole Blood 199 mg/dL (70-110)
[2022-10-06] MEDS: LACTATED RINGERS 1,000 ML IV SCH (19:31)
[2022-10-06 20:02] VITALS: RESP 18
[2022-10-06] MEDS: hydrALAZINE HCL 50 MG TAB PO SCH (20:07)
[2022-10-06] MEDS: SODIUM BICARBONATE TAB 650 MG TAB PO SCH (20:07)
[2022-10-06] MEDS: METOPROLOL TARTRATE 50 MG TAB PO SCH (20:07)
[2022-10-06 20:20] LABS: Glucose,Whole Blood 189 mg/dL (70-110)
[2022-10-06] MEDS ORDERED: ATORVASTATIN 10 MG TAB PO SCH (21:00)
[2022-10-07] MEDS: LACTATED RINGERS 1,000 ML IV SCH (02:14)
[2022-10-07 06:13] LABS: Glucose,Whole Blood 193 mg/dL (70-110)
[2022-10-07] MEDS: SODIUM BICARBONATE TAB 650 MG TAB PO SCH (07:39)
[2022-10-07] MEDS: METOPROLOL TARTRATE 50 MG TAB PO SCH (07:39)
[2022-10-07] MEDS: hydrALAZINE HCL 50 MG TAB PO SCH (07:39)
[2022-10-07] MEDS ORDERED: RIVAROXABAN 20 MG TAB PO SCH (09:00)
[2022-10-07] MEDS ORDERED: LOSARTAN 50 MG TAB PO SCH (09:00)
[2022-10-07] MEDS ORDERED: DAPAGLIFLOZIN PROPANEDIOL 5 MG TABLET PO SCH (09:00)
--- NOTE | 2022-10-07 10:52 | P.DS ---
Providers Date of admission: 10/06/22 15:10 Attending physician: Ilan Rasmussen Primary care physician: [facility] Hospital Course: Patient is resting comfortably in bed. He has been ambulating around the room No chest discomfort, mild sore throat no dizziness no lightheadedness remains in sinus rhythm Pulse rate in the 80s afebrile Blood pressure 146/80 and 104/66 mmHg Normal heart sounds no murmurs no gallops no rub Clear lungs no rhonchi no crackles No lower extremity edema No JVD Impression Persistent atrial fibrillation, refractory to therapy Status post PVI, linear ablation of the left atrial roof and Inducible atrial flutter at EP study associated with hypotension and RVR Status post successful ablation with bidirectional block Plan Continue Xarelto 20 mg by mouth daily for at least 1-2 weeks before going back to 15 mg daily Continue other cardiac medications Follow-up with Dr. Dunn Discharge home by noon time if hemodynamic is stable Plan - Discharge Summary Discharge Rx Participant: No New Discharge Prescriptions: Continue Metoprolol Tartrate [Lopressor] 50 mg PO BID hydrALAZINE HCL [Apresoline] 50 mg PO TID Sodium Bicarbonate Tab 1,950 mg PO TID Losartan Potassium [Cozaar] 100 mg PO DAILY Atorvastatin Calcium [Lipitor] 10 mg PO HS Rivaroxaban [Xarelto] 20 mg PO DAILY Empagliflozin [Jardiance] 10 mg PO DAILY Semaglutide [Ozempic] 1 mg SQ SA Discharge Medication List Metoprolol Tartrate [Lopressor] 50 mg PO BID 09/11/14 [History] hydrALAZINE HCL [Apresoline] 50 mg PO TID 09/11/14 [History] Sodium Bicarbonate Tab 1,950 mg PO TID 12/05/15 [History] Losartan Potassium [Cozaar] 100 mg PO DAILY 04/17/16 [History] Atorvastatin Calcium [Lipitor] 10 mg PO HS 08/05/17 [History] Rivaroxaban [Xarelto] 20 mg PO DAILY 11/04/18 [History] Empagliflozin [Jardiance] 10 mg PO DAILY 10/02/22 [History] Semaglutide [Ozempic] 1 mg SQ SA 10/02/22 [History] Follow up Appointment(s)/Referral(s): Guadalupe Dunn MD [STAFF PHYSICIAN] - 1 Week Activity/Diet/Wound Care/Special Instructions: Post EP study - Ablation instructions 1. Keep access sites dry for 2 days. 2. No heavy lifting or straining for 2 days. 3. Avoid bending the hips repeatedly for 2 days. 4. You may go up and down stairs slowly Call if the following is noted 1. Bleeding, increasing swelling or pain at the access sites. 2. Increasing chest discomfort, especially upon taking a deep breath. 3. Increasing shortness of breath, at rest or with exertion. 4. Undue cough / phlegm 5. Difficulty or pain while swallowing. 6. Pain or change in color in the extremities. 7. Fever, chills, rigors. 8. Increasing headache or neurologic symptoms. 9. Dizziness, fainting, palpitations Continue anticoagulation Discharge Disposition: HOME SELF-CARE
[2022-10-07 11:17] VITALS: BP 149/77; PULSE 80; TEMP 97.2
[2022-10-07 11:34] LABS: Glucose,Whole Blood 165 mg/dL (70-110)
[2022-10-11] MEDS ORDERED: NON FORMULARY DRUG (Semaglutide [Ozempic] 1 MG/0.75 ML Each) SQ SCH (16:08)
== END 2022-10-07 13:03 | disposition home or self-care (01) ==
LOC: CATHEP 09:27 → UNDOADMOB 15:10 → 3SCARD 15:10 → UNDODISOB 10-07 13:03 → CATHEP 10-07 13:03
PROVIDERS: ATTEND Internal Medicine Clinical Cardiac Electrophysiology
DX: I48.19 Other persistent atrial fibrillation (principal); I48.3 Typical atrial flutter; I44.2 Atrioventricular block, complete; I25.2 Old myocardial infarction; I25.10 Atherosclerotic heart disease of native coronary artery without angina pectoris; I47.1 Supraventricular tachycardia; I12.9 Hypertensive chronic kidney disease with stage 1 through stage 4 chronic kidney disease, or unspecified chronic kidney disease; N18.32 Chronic kidney disease, stage 3b; E78.5 Hyperlipidemia, unspecified; E11.9 Type 2 diabetes mellitus without complications; Z85.46 Personal history of malignant neoplasm of prostate; Z79.01 Long term (current) use of anticoagulants; Z79.899 Other long term (current) drug therapy; Z88.8 Allergy status to other drugs, medicaments and biological substances; Z95.1 Presence of aortocoronary bypass graft
CPT/HCPCS: 93656; 93657; 93623; 93655; 86900; 86901; 85025; 86850; C1759; C1894 ×2; C1769 ×2; C1760; C1730 ×2; C1893; C1733; C1766; C1732; J2250; J0330; J1644 ×3; J1100; J1940; J2710; J2405; J2001 ×2; J3010; J0131; J2370; J2704; J1170; Q9967

== ENCOUNTER → 2023-07-21 | Outpatient (CLI) | payer MEDICARE, BC ==
[2023-07-21 11:19] LABS: ALT 19 U/L (10-49); AST 20 U/L (14-35); Albumin 4.2 g/dL (3.8-4.9); Albumin/Globulin Ratio 1.75 Ratio (1.60-3.17); Alkaline Phosphatase 92 U/L (41-126); BUN/Creat Ratio 15.31 Ratio (12.00-20.00); Blood Urea Nitrogen 24.5 mg/dL (9.0-27.0); Calcium 9.8 mg/dL (8.7-10.3); Carbon Dioxide 29.3 mmol/L (21.6-31.8); Chloride 103 mmol/L (96-109); Chol/HDL Ratio 2.75 Ratio; Globulin 2.4 g/dL (1.6-3.3); Glucose 165 mg/dL (70-110); LDL Cholesterol,Calculated 63.8 mg/dL (0.0-131.0); Potassium 5.2 mmol/L (3.5-5.5); Sodium 141 mmol/L (135-145); Total Bilirubin 1.3 mg/dL (0.3-1.2); Total Protein 6.6 g/dL (6.2-8.2); VLDL Calculation 17.12 mg/dL (5.00-40.00)
== END | disposition home or self-care (01) ==
LOC: LABWHC1 06:48
PROVIDERS: ATTEND Internal Medicine Interventional Cardiology
DX: I10 Essential (primary) hypertension (principal); E78.2 Mixed hyperlipidemia
CPT/HCPCS: 36415; 80053; 80061

== ENCOUNTER → 2024-08-01 | Outpatient (CLI) | payer MEDICARE, BC ==
[2024-08-01 11:02] LABS: ALT 21 U/L (10-49); AST 20 U/L (14-35); Chol/HDL Ratio 2.77 Ratio
== END | disposition home or self-care (01) ==
LOC: LABWHC1 06:56
PROVIDERS: ATTEND Internal Medicine Interventional Cardiology
DX: E78.2 Mixed hyperlipidemia (principal)
CPT/HCPCS: 36415; 80061; 84450; 84460

== ENCOUNTER 2024-08-11 10:22 | Emergency (ER) | payer MEDICARE, BC ==
[2024-08-11 10:54] VITALS: TEMP 98
--- NOTE | 2024-08-11 11:32 | ED ---
Upper Extremity HPI - General Chief Complaint: Extremity Injury, Upper Stated Complaint: L Arm Wound Time Seen by Provider: 08/11/24 11:29 Source: patient, RN notes reviewed Mode of arrival: ambulatory Limitations: no limitations - History of Present Illness Initial Comments: 78-year-old male presenting for left forearm injury yesterday. States he was struck by a hand crank on a trailer yesterday around 10 AM. He is on blood thinners. He states he has a skin tear on his left forearm with diffuse bruising. Last tetanus unknown. - Related Data Home Medications Medication Instructions Recorded Confirmed Metoprolol Tartrate [Lopressor] 50 mg PO BID 09/11/14 10/06/22 hydrALAZINE HCL [Apresoline] 50 mg PO TID 09/11/14 10/06/22 Sodium Bicarbonate Tab 1,950 mg PO TID 12/05/15 10/06/22 Losartan Potassium [Cozaar] 100 mg PO DAILY 04/17/16 10/06/22 Atorvastatin Calcium [Lipitor] 10 mg PO HS 08/05/17 10/06/22 Rivaroxaban [Xarelto] 20 mg PO DAILY 11/04/18 10/06/22 Empagliflozin [Jardiance] 10 mg PO DAILY 10/02/22 10/06/22 Semaglutide [Ozempic] 1 mg SQ SA 10/02/22 10/06/22 Previous Rx's Medication Instructions Recorded Cephalexin [Keflex] 500 mg PO Q12H 5 Days #10 cap 08/11/24 Allergies Allergy/AdvReac Type Severity Reaction Status Date / Time allopurinol Allergy Unknown Verified 08/11/24 10:54 choline fenofibrate Allergy Unknown Verified 08/11/24 10:54 [From Trilipix] febuxostat [From Uloric] Allergy Unknown Verified 08/11/24 10:54 metformin Allergy Unknown Verified 08/11/24 10:54 Review of Systems ROS Statement: Those systems with pertinent positive or pertinent negative responses have been documented in the HPI. ROS Other: All systems not noted in ROS Statement are negative. Past Medical History Past Medical History: Atrial Flutter, Coronary Artery Disease (CAD), Cancer, Diabetes Mellitus, Eye Disorder, Hyperlipidemia, Hypertension, Myocardial Infarction ([place]), Osteoarthritis (OA), Prostate Disorder, Renal Disease, Skin Disorder Additional Past Medical History / Comment(s): hx kidney stones(takes sodium bicarb), varicose veins bilaterally, prostate cancer, hx gout, hx skin cancer, diabetic retinopathy Last Myocardial Infarction Date:: 2007 History of Any Multi-Drug Resistant Organisms: None Reported Past Surgical History: Coronary Bypass/CABG, Heart Catheterization, Prostate Surgery Additional Past Surgical History / Comment(s): 12/14/15 Robot assisted laparoscopic prostatectomy bilateral pelvic lymhadenectomy. 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 Past Anesthesia/Blood Transfusion Reactions: No Reported Reaction Past Psychological History: No Psychological Hx Reported Smoking Status: Never smoker Past Alcohol Use History: None Reported Past Drug Use History: None Reported - Past Family History Sister(s) Family Medical History: Diabetes Mellitus Father Family Medical History: Coronary Artery Disease (CAD) Mother Family Medical History: Coronary Artery Disease (CAD), Diabetes Mellitus Brother(s) Family Medical History: AICD/Pacemaker Son(s) Family Medical History: No Reported History Daughter(s) Family Medical History: No Reported History General Exam Limitations: no limitations General appearance: alert, in no apparent distress Head exam: Present: atraumatic, normocephalic, normal inspection Left Shoulder Exam: Present: normal inspection, full ROM. Absent: tenderness, swelling Upper Arm exam: Present: normal inspection, full ROM. Absent: tenderness, swelling Elbow exam: Present: normal inspection, full ROM. Absent: tenderness, swelling Forearm Wrist exam: Present: full ROM, swelling, abrasion, erythema. Absent: normal inspection (There is a large skin tear present on dorsal aspect of left forearm with active bleeding and diffuse surrounding contusions), tenderness, laceration Hand Wrist exam: Present: normal inspection, full ROM. Absent: tenderness, swelling Vascular: Present: normal capillary refill, radial pulse. Absent: vascular compromise Neurological exam: Present: alert, oriented X3 Psychiatric exam: Present: normal affect, normal mood Skin exam: Present: warm, dry, intact, normal color. Absent: rash Course Vital Signs 08/11/24 10:50 Temperature 98 F Pulse Rate 80 Respiratory 18 Rate Blood Pressure 147/68 O2 Sat by Pulse 98 Oximetry Medical Decision Making - Medical Decision Making Was pt. sent in by a medical professional or institution (JAY JAY Begum, PARASITOLOGY TEACHER, urgent care, hospital, or fci...) When possible be specific @ -No Did you speak to anyone other than the patient for history (EMS, parent, family, police, friend...)? What history was obtained from this source @ -No Did you review nursing and triage notes (agree or disagree)? Why? @ -I reviewed and agree with nursing and triage notes Were old charts reviewed (outside hosp., previous admission, EMS record, old EKG, old radiological studies, urgent care reports/EKG's, fci records)? Report findings @ -No old charts were reviewed Differential Diagnosis (chest pain, altered mental status, abdominal pain women, abdominal pain men, vaginal bleeding, weakness, fever, dyspnea, syncope, headache, dizziness, GI bleed, back pain, seizure, CVA, palpatations, mental health, musculoskeletal)? @ -Differential Musculoskeletal Muscular strain, contusion, ligament sprain, fracture, arthritis, septic arthritis, bursitis, cellulitis, muscle spasm, nerve compression, DVT, arterial occlusion, herpes zoster, electrolyte abnormality, tumor.... This is not meant to be in all inclusive list EKG interpreted by me (3pts min.). @ -None X-rays interpreted by me (1pt min.). @ -X-ray left forearm reveals no acute process CT interpreted by me (1pt min.). @ -None done U/S interpreted by me (1pt. min.). @ -None done What testing was considered but not performed or refused? (CT, X-rays, U/S, labs)? Why? @ -None What meds were considered but not given or refused? Why? @ -None Did you discuss the management of the patient with other professionals (professionals i.e. JAY JAY Begum, PARASITOLOGY TEACHER, lab, RT, psych nurse, social service agency director, education faculty member, teacher, fare enforcement officer, ed case manager)? Give summary @ -No Was smoking cessation discussed for >3mins.? @ -No Was critical care preformed (if so, how long)? @ -No Were there social determinants of health that impacted care today? How? (Homelessness, low income, unemployed, alcoholism, drug addiction, transportation, low edu. Level, literacy, decrease access to med. care, intermediate, rehab)? @ -No Was there de-escalation of care discussed even if they declined (Discuss DNR or withdrawal of care, Hospice)? DNR status @ -No What co-morbidities impacted this encounter? (DM, HTN, Smoking, COPD, CAD, Cancer, CVA, ARF, Chemo, Hep., AIDS, mental health diagnosis, sleep apnea, morbid obesity)? @ -None Was patient admitted / discharged? Hospital course, mention meds given and route, prescriptions, significant lab abnormalities, going to OR and other pertinent info. @ -Discharge. 78-year-old male presenting for left forearm injury yesterday on thinners. There is a large skin tear on left forearm with active bleeding and surrounding contusions. Tetanus was updated. Wound was thoroughly irrigated and dressed appropriately. X-ray left forearm reveals no acute process. Patient will be provided with outpatient prescription for antibiotics for antibacterial prophylaxis. Case was discussed with my ED attending Dr. Cano. Undiagnosed new problem with uncertain prognosis? @ -No Drug Therapy requiring intensive monitoring for toxicity (Heparin, Nitro, Insulin, Cardizem)? @ -No Were any procedures done? @ -No Diagnosis/symptom? @ -Left forearm skin tear Acute, or Chronic, or Acute on Chronic? @ -Acute Uncomplicated (without systemic symptoms) or Complicated (systemic symptoms)? @ -Uncomplicated Side effects of treatment? @ -No Exacerbation, Progression, or Severe Exacerbation? @ -No Poses a threat to life or bodily function? How? (Chest pain, [place], [place], pneumonia, PE, COPD, DKA, ARF, appy, cholecystitis, CVA, Diverticulitis, Homicidal, Suicidal, threat to staff... and all critical care pts) @ -No Disposition Clinical Impression: Skin tear of left forearm without complication Disposition: HOME SELF-CARE Condition: Stable Instructions (If sedation given, give patient instructions): Skin Tear (ED) Additional Instructions: Take Keflex twice daily for 5 days to help prevent infection of your skin tear. Replace wound dressing once daily. Please return to the Emergency Department if symptoms worsen or any other concerns. Prescriptions: Cephalexin [Keflex] 500 mg PO Q12H 5 Days #10 cap Is patient prescribed a controlled substance at d/c from ED?: No Referrals: Cullen Fisher DO [Primary Care Provider] - 1-2 days Time of Disposition: 12:39
[2024-08-11] MEDS: DIPH,PERTUS(ACELL)TETVAC-LF 0.5 ML VIAL IM ONE (11:49)
--- NOTE | 2024-08-11 11:50 | XR ---
EXAMINATION TYPE: XR forearm LT DATE OF EXAM: 08/11/2024 11:45 AM COMPARISON: None. CLINICAL INDICATION: Male, 78 years old with history of left forearm injury, pain TECHNIQUE: 2 view(s) obtained. FINDINGS: Vascular calcification is present. Multiple vascular clips are evident. No acute fracture or dislocation evident. Joint spaces appear preserved. No elevation of the fat pads at the elbow is evident. Tiny olecranon spur is present. Follow up exams can be performed 7-10 days from acute trauma for continued pain. IMPRESSION: 1. No acute osseous abnormality left forearm [facility] Karmen Aldridge, , 08/11/2024 11:48 AM
[2024-08-11 12:50] VITALS: BP 131/74; PULSE 69; RESP 16
== END 2024-08-11 12:50 | disposition home or self-care (01) ==
LOC: EC 10:22
DX: S51.812A Laceration without foreign body of left forearm, initial encounter (principal); Z88.8 Allergy status to other drugs, medicaments and biological substances; Z23 Encounter for immunization; W27.8XXA Contact with other nonpowered hand tool, initial encounter
CPT/HCPCS: 90471; 90715; 99283

== ENCOUNTER 2024-09-27 00:56 | Emergency (ER) | payer MEDICARE, BC ==
[2024-09-27 01:00] VITALS: BP 188/69; PULSE 71; RESP 18; TEMP 97.6
--- NOTE | 2024-09-27 01:12 | ED ---
ENT HPI - General Chief complaint: ENT Stated complaint: Aspercreme in eyes Time Seen by Provider: 09/27/24 01:12 Source: patient, RN notes reviewed Mode of arrival: ambulatory Limitations: no limitations - History of Present Illness Initial comments: 78-year-old male presented to the ER for evaluation of burning eyes. Patient states he was placing Aspercreme on his neck and believes he may have rubbed his eyes just after this. Patient is concerned he may have gotten some Aspercreme into his eyes. He is endorsing a burning sensation to bilateral eyes. He did attempt to flush his eyes out with water without relief of symptoms. He does report vision is mildly fuzzy. Denies contact lens use but does use glasses for reading. He denies any pain with extraocular motions or photophobia out of the norm. Patient denies any other complaints at this time - Related Data Home Medications Medication Instructions Recorded Confirmed Metoprolol Tartrate [Lopressor] 50 mg PO BID 09/11/14 10/06/22 hydrALAZINE HCL [Apresoline] 50 mg PO TID 09/11/14 10/06/22 Sodium Bicarbonate Tab 1,950 mg PO TID 12/05/15 10/06/22 Losartan Potassium [Cozaar] 100 mg PO DAILY 04/17/16 10/06/22 Atorvastatin Calcium [Lipitor] 10 mg PO HS 08/05/17 10/06/22 Rivaroxaban [Xarelto] 20 mg PO DAILY 11/04/18 10/06/22 Empagliflozin [Jardiance] 10 mg PO DAILY 10/02/22 10/06/22 Semaglutide [Ozempic] 1 mg SQ SA 10/02/22 10/06/22 Previous Rx's Medication Instructions Recorded Cephalexin [Keflex] 500 mg PO Q12H 5 Days #10 cap 08/11/24 Allergies Allergy/AdvReac Type Severity Reaction Status Date / Time allopurinol Allergy Unknown Verified 09/27/24 01:00 choline fenofibrate Allergy Unknown Verified 09/27/24 01:00 [From Trilipix] febuxostat [From Uloric] Allergy Unknown Verified 09/27/24 01:00 metformin Allergy Unknown Verified 09/27/24 01:00 Review of Systems ROS Statement: Those systems with pertinent positive or pertinent negative responses have been documented in the HPI. ROS Other: All systems not noted in ROS Statement are negative. Past Medical History Past Medical History: Atrial Flutter, Coronary Artery Disease (CAD), Cancer, Diabetes Mellitus, Eye Disorder, Hyperlipidemia, Hypertension, Myocardial Infarction ([place]), Osteoarthritis (OA), Prostate Disorder, Renal Disease, Skin Disorder Additional Past Medical History / Comment(s): hx kidney stones(takes sodium bicarb), varicose veins bilaterally, prostate cancer, hx gout, hx skin cancer, diabetic retinopathy Last Myocardial Infarction Date:: 2007 History of Any Multi-Drug Resistant Organisms: None Reported Past Surgical History: Coronary Bypass/CABG, Heart Catheterization, Prostate Surgery Additional Past Surgical History / Comment(s): 12/14/15 Robot assisted laparoscopic prostatectomy bilateral pelvic lymhadenectomy. 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 Past Anesthesia/Blood Transfusion Reactions: No Reported Reaction Past Psychological History: No Psychological Hx Reported Smoking Status: Never smoker Past Alcohol Use History: None Reported Past Drug Use History: None Reported - Past Family History Sister(s) Family Medical History: Diabetes Mellitus Father Family Medical History: Coronary Artery Disease (CAD) Mother Family Medical History: Coronary Artery Disease (CAD), Diabetes Mellitus Brother(s) Family Medical History: AICD/Pacemaker Son(s) Family Medical History: No Reported History Daughter(s) Family Medical History: No Reported History General Exam Limitations: no limitations General appearance: alert, in no apparent distress Eye exam: Present: normal appearance, PERRL, EOMI (Pain less), conjunctival injection (Mild bilaterally), other (Fluorescein stain negative for acute uptake. No Karla sign, hyphema or teardrop pupil. Bilateral pH 7). Absent: scleral icterus, periorbital swelling Pupils: Present: normal accommodation Respiratory exam: Present: normal lung sounds bilaterally. Absent: respiratory distress, wheezes, rales, rhonchi, stridor Cardiovascular Exam: Present: regular rate, normal rhythm, normal heart sounds. Absent: systolic murmur, diastolic murmur, rubs, gallop, clicks Neurological exam: Present: alert, oriented X3, CN II-XII intact Skin exam: Present: warm, dry, intact, normal color. Absent: rash Course Vital Signs 09/27/24 00:58 Temperature 97.6 F Pulse Rate 71 Respiratory 18 Rate Blood Pressure 188/69 O2 Sat by Pulse 98 Oximetry Medical Decision Making - Medical Decision Making Was pt. sent in by a medical professional or institution (JAY JAY Begum, CROP SUPERVISOR, urgent care, hospital, or fci...) When possible be specific @ -No Did you speak to anyone other than the patient for history (EMS, parent, family, police, friend...)? What history was obtained from this source @ -Significant other, at bedside, aiding in HPI past medical history. Did you review nursing and triage notes (agree or disagree)? Why? @ -I reviewed and agree with nursing and triage notes Were old charts reviewed (outside hosp., previous admission, EMS record, old EKG, old radiological studies, urgent care reports/EKG's, fci records)? Report findings @ -No old charts were reviewed Differential Diagnosis (chest pain, altered mental status, abdominal pain women, abdominal pain men, vaginal bleeding, weakness, fever, dyspnea, syncope, headache, dizziness, GI bleed, back pain, seizure, CVA, palpatations, mental health, musculoskeletal)? @ -Corneal abrasion, ocular foreign body, hyphema, conjunctivitis, globe rupture, acute angle-closure glaucoma this list is not meant to be all-inclusive EKG interpreted by me (3pts min.). @ -None done X-rays interpreted by me (1pt min.). @ -None done CT interpreted by me (1pt min.). @ -None done U/S interpreted by me (1pt. min.). @ -None done What testing was considered but not performed or refused? (CT, X-rays, U/S, labs)? Why? @ -None What meds were considered but not given or refused? Why? @ -None Did you discuss the management of the patient with other professionals (professionals i.e. JAY JAY Begum, CROP SUPERVISOR, lab, RT, psych nurse, psychologist social, french binding folder, teacher, founder and chief technical officer, case planner)? Give summary @ -No Was smoking cessation discussed for >3mins.? @ -No Was critical care preformed (if so, how long)? @ -No Were there social determinants of health that impacted care today? How? (Homelessness, low income, unemployed, alcoholism, drug addiction, transportation, low edu. Level, literacy, decrease access to med. care, penitentiary, rehab)? @ -No Was there de-escalation of care discussed even if they declined (Discuss DNR or withdrawal of care, Hospice)? DNR status @ -No What co-morbidities impacted this encounter? (DM, HTN, Smoking, COPD, CAD, Cancer, CVA, ARF, Chemo, Hep., AIDS, mental health diagnosis, sleep apnea, morbid obesity)? @ -None Was patient admitted / discharged? Hospital course, mention meds given and route, prescriptions, significant lab abnormalities, going to OR and other pertinent info. @ -Discharge. 78-year-old male presented the ER for evaluation of bilateral eye irritation. Patient believes he got Aspercreme in his eyes after rubbing it on his neck. Vital signs stable. Exam remarkable for mild conjunctival injection bilateral eyes. Fluorescein stain negative. Bilateral eye pH 7. No foreign body, Karla sign, teardrop pupil or hyphema noted. Visual acuity 20/30 bilaterally. Patient's eyes flushed numerous times with saline flushes. After this patient reporting improvement of discomfort and is comfortable discharge at this time. Strict return parameters discussed. Patient discharged in stable condition advised follow-up with PCP and ophthalmology, referral given. Patient verbally expressed understanding agree with care plan. Case discussed with ED attending of Dr. Cardona Undiagnosed new problem with uncertain prognosis? @ -No Drug Therapy requiring intensive monitoring for toxicity (Heparin, Nitro, Insulin, Cardizem)? @ -No Were any procedures done? @ -No Diagnosis/symptom? @ -Eye irritation Acute, or Chronic, or Acute on Chronic? @ -Acute Uncomplicated (without systemic symptoms) or Complicated (systemic symptoms)? @ -Uncomplicated Side effects of treatment? @ -No Exacerbation, Progression, or Severe Exacerbation? @ -No Poses a threat to life or bodily function? How? (Chest pain, [place], [place], pneumonia, PE, COPD, DKA, ARF, appy, cholecystitis, CVA, Diverticulitis, Homicidal, Suicidal, threat to staff... and all critical care pts) @ -No Disposition Clinical Impression: Eye irritation Disposition: HOME SELF-CARE Condition: Stable Additional Instructions: Follow-up closely with PCP and ophthalmology. Return to the ER for any new or worsening concerns. Is patient prescribed a controlled substance at d/c from ED?: No Referrals: Cullen Fisher DO [Primary Care Provider] - 1-2 days Bill Diego MD [STAFF PHYSICIAN] - 1-2 days Time of Disposition: 01:38
[2024-09-27] MEDS: FLUORESCEIN STRIPS 1 MG STRIP RIGHT EYE ONE (01:18)
[2024-09-27] MEDS: PROPARACAINE 0.5% OPHTH DROPS 15 ML BTL RIGHT EYE STA (01:18)
== END 2024-09-27 01:41 | disposition home or self-care (01) ==
LOC: EC 00:56
DX: H10.33 Unspecified acute conjunctivitis, bilateral (principal); Z88.8 Allergy status to other drugs, medicaments and biological substances
CPT/HCPCS: 99282